=== PATIENT | male | born 1985 | race Caucasian/White ===

== ENCOUNTER 2020-08-15 03:19 | Emergency (ER) | payer BC, SELFPAY ==
[2020-08-15] VITALS (23 sets, daily range): BP systolic 127–171; BP diastolic 83–111; PULSE 73–100; RESP 12–26; TEMP 36.6; O2SAT 96–100
--- NOTE | ~2020-08-15 | XR_ITS ---
EXAMINATION: XR chest 2V 08/15/2020 04:03 INDICATION: Chest tightness PROCEDURE: 2 view chest COMPARISON: No prior studies for comparison. FINDINGS: The lungs are clear. The cardiomediastinal silhouette is within normal limits. There are no pleural effusions. There is no pneumothorax suspected. IMPRESSION: 1: NO ACUTE CARDIOPULMONARY DISEASE. Reviewed, dictated and finalized at location A.
--- NOTE | 2020-08-15 03:21 | ECG_ITS ---
Measurements Intervals [place] Rate: 95 P: 58 ME: 140 QRS: -10 QRSD: 94 T: 12 QT: 325 QTc: 409 Interpretive Statements SINUS RHYTHM NONSPECIFIC ST ELEVATION IN ANTEROLAT/INF LEADS BASELINE ARTIFACT- II, III, AVR, AVF, V1-V6 BORDERLINE ECG Electronically Signed On 08-15-2020 6:04:04 CDT by Adonay Fisher D.O.
--- NOTE | 2020-08-15 03:25 | ED.CHESTPAIN ---
HPI - Chest Pain General Chief Complaint: Chest Pain Stated Complaint: shaking, chest tightness an hour ago Time Seen by Provider: 08/15/20 03:25 History of Present Illness HPI narrative: Awoken from sleep by chest pressure. substernal. Moderate. N radiation. Associated with SOB and full body shakes, not chills. He has never had this before. cough, congestion, fever. Related Data Allergies Allergy/AdvReac Type Severity Reaction Status Date / Time Penicillins AdvReac Other Verified 08/15/20 03:25 Review of Systems Review of Systems: All systems reviewed & are unremarkable except as noted in HPI and below Constitutional: Constitutional: Denies chills and Denies fever(s) Cardiovascular: Cardiovascular: Reports as per HPI Respiratory: Respiratory: Reports as per HPI Gastrointestinal: Gastrointestinal: Reports no additional gastrointestinal complaints [facility] Past Medical History Medical History (Updated 08/16/20 @ 00:00 by Background Daemon) HTN (hypertension) Exam Const: General: healthy appearing, no acute distress and alert Orientation/consciousness: patient oriented x3 HENMT: Head: normal to inspection Neck: Neck: normal visual inspection and no lymphadenopathy Chest: Chest palpation & inspection: no tenderness Resp: Effort & Inspection: normal respiratory effort Auscultation: clear to auscultation bilaterally, no rales, no rhonchi and no wheezes Cardio: Jugular venous distension: no JVD Rate: regular rate Rhythm: regular rhythm Heart sounds: no murmurs GI: Inspection: non-distended GI Palp: Yes Soft to palpation and No Tenderness to palpation present (GI) Skin: General skin exam: normal color Neuro: General: patient oriented x3 and moves all extremities Speech: normal speech Extrem: General: no edema Psych: Appearance: well kempt Affect: Anxious affect present Course Vital Signs Vital signs: Vital Signs Temperature 36.6 C 08/15/20 03:21 Pulse Rate 97 08/15/20 03:21 Respiratory Rate 20 08/15/20 03:21 Blood Pressure 171/111 H 08/15/20 03:21 Pulse Oximetry 99 08/15/20 03:21 Temperature 36.6 C 08/15/20 03:21 Pulse Rate 87 08/15/20 07:03 Respiratory Rate 26 H 08/15/20 07:03 Blood Pressure 143/96 H 08/15/20 07:03 Pulse Oximetry 96 08/15/20 07:03 MDM - Chest Pain MDM Narrative Medical decision making narrative: Pain is atypical. Low risk. Differential Diagnosis Differential diagnosis: Likely atypical chest pain Medical Records Data Attestation: I reviewed the patient's medical records. Lab Data Attestation: I reviewed the patient's lab results. Result diagrams: 08/15/20 03:08/15/20 03:27 Labs: Lab Results 08/15/20 08/15/20 08/15/20 Range/Units 03: 03: 03:27 WBC 5.1 (4.5-10.0) K/mm3 RBC 4.96 (4.6-6.20) M/mm3 Hgb 15.6 (14.0-18.0) g/dL Hct 45.1 (42.0-52.0) % MCV 90.9 (80-100) fl MCH 31.5 (26-34) pg MCHC 34.6 (32-36) g/dl RDW 11.7 (11.5-14.5) % Plt Count 194 (150-375) k/mm3 MPV 10.1 (7.4-10.4) fl Immature Gran % (Auto) 0.6 H (0-0.5) % Neut % (Auto) 41.1 L (45.5-73.1) % Lymph % (Auto) 46.7 H (18.3-44.2) % [place] % (Auto) 9.2 H (2.6-8.5) % Eos % (Auto) 2.0 (0-4.4) % Baso % (Auto) 0.4 (0.2-1.2) % Lymph # (Auto) 2.38 (0.9-3.2) K/mm3 [place] # (Auto) 0.5 (0.1-0.6) K/mm3 Eos # (Auto) 0.1 (0-0.3) K/mm3 Baso # (Auto) 0.0 (0.0-0.1) K/mm3 Abs Immat Gran (auto) 0.03 (0.00-0.031) K/mm3 Absolute Neuts (auto) 2.1 (1.3-6.7) K/mm3 Absolute Nucleated RBC 0.0 (0.0-0.012) K/mm3 Nucleated RBC % 0.0 (0.0-0.2) % PT 13.1 (11.1-14.7) Seconds INR 0.9 APTT 23.8 (22.3-36.8) SECONDS Sodium 142 (137-145) mmol/L Potassium 3.9 (3.4-5.0) mmol/L Chloride 104 (98-107) mmol/L Carbon Dioxide 26 (22-30) mmol/L Anion Gap 12 (8-16) mmol/L BUN 15 (9-20) mg/dL Creatinine 0.70 (0.7-
[2020-08-15 03:36] LABS: Basophils Percent Auto 0.4 % (0.2-1.2); Eosinophils Absolute Auto 0.1 K/mm3 (0-0.3); Hematocrit 45.1 % (42.0-52.0); Hemoglobin 15.6 g/dL (14.0-18.0); Immature Granulocyte Absolute 0.03 K/mm3 (0.00-0.031); Immature Granulocyte Percent A 0.6 % (0-0.5); Lymphocytes Absolute Auto 2.38 K/mm3 (0.9-3.2); Lymphocytes Percent Auto 46.7 % (18.3-44.2); Mean Corpuscular HGB Conc 34.6 g/dl (32-36); Mean Corpuscular Hemoglobin 31.5 pg (26-34); Mean Corpuscular Volume 90.9 fl (80-100); Mean Platelet Volume 10.1 fl (7.4-10.4); Monocytes Absolute Auto 0.5 K/mm3 (0.1-0.6); Monocytes Percent Auto 9.2 % (2.6-8.5); Neutrophils Absolute Auto 2.1 K/mm3 (1.3-6.7); Neutrophils Percent Auto 41.1 % (45.5-73.1); Platelet Count Result 194 k/mm3 (150-375); Red Blood Count 4.96 M/mm3 (4.6-6.20); Red Cell Distribution Width 11.7 % (11.5-14.5); White Blood Count 5.1 K/mm3 (4.5-10.0)
[2020-08-15 03:43] LABS: INR 0.9; Partial Thromboplastin Time 23.8 SECONDS (22.3-36.8); Prothrombin Time 13.1 Seconds (11.1-14.7)
[2020-08-15 03:45] LABS: Anion Gap 12 mmol/L (8-16); Blood Urea Nitrogen 15 mg/dL (9-20); Calcium 10.4 mg/dL (8.4-10.2); Carbon Dioxide 26 mmol/L (22-30); Chloride 104 mmol/L (98-107); Estimated CRCL calculation 126 ml/min; Estimated Glomerular Filt Rate > 60; Glucose 91 mg/dL (75-110); Potassium 3.9 mmol/L (3.4-5.0); Sodium 142 mmol/L (137-145)
[2020-08-15 03:56] LABS: Troponin I < 0.012 ng/mL (0.000-0.034)
[2020-08-15] MEDS: ASPIRIN 81 MG CHEWABLE TABLET 324 MG PO (04:11)
[2020-08-15 06:31] LABS: Troponin I < 0.012 ng/mL (0.000-0.034)
== END 2020-08-15 07:04 | disposition home or self-care (01) ==
PROVIDERS: Emergency Provider Emergency Medicine; PCP Family Medicine Adolescent Medicine
DX: R07.89 Other chest pain (principal); I10 Essential (primary) hypertension; R94.31 Abnormal electrocardiogram [ECG] [EKG]
CPT/HCPCS: 36415; 71046; 80048; 84484; 85025; 85610; 85730; 93005; 99284; A9270

== ENCOUNTER 2021-04-05 00:50 | Inpatient (IN) | payer BC, SELFPAY ==
[2021-04-05] VITALS (22 sets, daily range): BP systolic 122–135; BP diastolic 74–90; PULSE 85–109; RESP 16–20; TEMP 36.4–37.6; O2SAT 93–99; BMI 22.8
--- NOTE | ~2021-04-05 | XR_ITS ---
EXAMINATION: XR chest 2V DATE: 04/07/2021 14:03 INDICATION: Chest pain and shortness of breath TECHNIQUE: PA and lateral views of the chest were obtained. COMPARISON: Chest radiograph dated 08/15/2021 FINDINGS: Opacities at the bilateral lung base with blunting at the posterior sulci and costophrenic angles con sistent with small bilateral pleural effusions with bibasilar atelectasis versus less likely pneumoni a. No pulmonary edema or pneumothorax. The cardiomediastinal silhouette is normal. Visualized bones a nd soft tissues are unremarkable. IMPRESSION: 1. Small bilateral pleural effusions with bibasilar atelectasis versus less likely pneumonia. Reviewed, dictated and finalized at location A. EPT ARTIST IMPRESSION: 1. Small bilateral pleural effusions with bibasilar atelectasis versus less lik presley pneumonia.
--- NOTE | ~2021-04-05 | US_ITS ---
EXAMINATION: US abdomen complete DATE: 04/07/2021 10:49 INDICATION: Abdominal pain TECHNIQUE: Multiple grayscale and Doppler ultrasound images of the abdomen were obtained. COMPARISON: None available FINDINGS: The pancreas is hyperechoic. The liver demonstrates increased echogenicity, heterogenous ec hotexture, and decreased through transmission. No surface nodularity. Normal hepatopetal flow in the main portal vein. The gallbladder is normal with no abnormal wall thickening, pericholecystic fluid o r stones. The normal common bile duct measures 4 mm. There was no sonographic Greene sign. The visual ized portions of the aorta and inferior vena cava are normal. The right kidney measures 10.4 x 6.1 x 5.7 cm. The left kidney measures 10.7 x 6.6 x 6.2 cm. The kidn eys demonstrate normal parenchymal echogenicity. There is no hydronephrosis. The spleen is normal in appearance and measures 12.6 cm. IMPRESSION: 1. Hyperechoic pancreas possibly due to acute pancreatitis. 2. Diffuse hepatic steatosis. Reviewed, dictated and finalized at location A. ING MACHINE OPERATOR
--- NOTE | ~2021-04-05 | CT_ITS ---
EXAMINATION: CT abdomen pelvis wo con DATE: 04/09/2021 12:08 INDICATION: Fever and abdominal pain. Pancreatitis. TECHNIQUE: Computed tomography (CT) of the abdomen and pelvis was performed without intravenous contr ast. The dose-length product was 375.33 mGy-cm. Automated exposure control and iterative reconstructi on technique were employed. COMPARISON: CT dated 04/05/2021. FINDINGS: New small bilateral pleural effusions. Heart size normal. Bibasilar dependent atelectasis. No significant vascular abnormality. There is moderate phlegmonous change surrounding the pancreas wh ich is indistinct. There is fluid extending into the paracolic gutters and pelvis, consistent with ac handy pancreatitis. Fatty infiltration of the liver. The spleen contains calcified granulomas. The adrenal glands and rig ht kidney are unremarkable. There is a punctate nonobstructing left renal stone. The IVC is duplicate d. There is mild lumbar and thoracic spondylosis. IMPRESSION: 1. Persistent acute pancreatitis with moderate surrounding phlegmonous change. 2: New small pleural effusions with underlying compressive atelectasis. Reviewed, dictated and finalized at location A. AND TROLLEY INSPECTING DISPATCHER
--- NOTE | ~2021-04-05 | CT_ITS ---
EXAMINATION: CT abdomen pelvis w con DATE: 04/05/2021 02:12 INDICATION: Right lower quadrant abdominal pain. TECHNIQUE: Computed tomography (CT) of the abdomen and pelvis was performed with 100 mL Omnipaque 350 intravenous contrast. Automated exposure control and iterative reconstruction technique were employe d. The dose-length product was 306.38 mGy-cm. COMPARISON: None. FINDINGS: The visualized portions of the lung bases demonstrate mild atelectasis. No pleural effusion . The heart size is normal. No pericardial effusion. There is diffuse hepatic steatosis. The gallblad nicholas is normal. Calcifications in the spleen are consistent with old granulomatous disease. There is f at stranding and fluid around the pancreas and tracking to the right paracolic gutter, consistent wit h acute interstitial pancreatitis. There is a small volume of pelvic ascites. The adrenal glands and kidneys are normal. There are no dilated loops of bowel. The appendix is normal. There are no patholo gically enlarged lymph nodes. 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 There is mild lumbar and thoracic spondylosis. IMPRESSION: 1. Acute interstitial pancreatitis. 2. Small volume of ascites. 3. Diffuse hepatic steatosis. Reviewed, dictated and finalized at location A. RACTING ENGINEER
--- NOTE | 2021-04-05 01:02 | ED.ABDPAIN ---
HPI - Abdominal Pain General Chief Complaint: Abdominal Pain Stated Complaint: abdominal pain Time Seen by Provider: 04/05/21 00:53 Source: RN notes reviewed History of Present Illness HPI narrative: Patient presents emergency department from home for abdominal pain. Patient states pain began yesterday and is located in the right side of the abdomen with low equalization in the right lower quadrant pain described as sharp and stabbing states he has been taking Tylenol ibuprofen at home with minimal relief he denies any fevers or chills nausea vomiting but does note some loose stools states the pain is worse with movement denies any other symptoms at this time Related Data Allergies Allergy/AdvReac Type Severity Reaction Status Date / Time Penicillins AdvReac Other Verified 04/05/21 01:01 Review of Systems Review of Systems: Gen.: Denies fevers or chills ENT: Denies congestion Respiratory: Denies shortness of breath or cough CV: Denies chest pain or palpitations GI: See HPI Musculoskeletal: Denies back pain or muscle pain Neuro: Denies numbness, tingling, weakness or focal weakness Skin: Denies rash Except as documented, all other systems reviewed and negative [facility] Past Medical History Medical History HTN (hypertension) Social History Social History (Updated 04/05/21 @ 01:03 by John Martinez DO) Smoking status: Never smoker Exam Narrative: APPEARANCE: No acute distress, nontoxic, resting in bed HEENT: Normocephalic, atraumatic, OMM RESPIRATORY: No respiratory distress, clear to auscultation bilaterally with no rhonchi wheezing or rales CARDIOVASCULAR: RRR s murmur ABDOMINAL: Soft nondistended diffusely tender to palpation with increased tenderness in right lower quadrant no guarding MUSCULOSKELETAl: Moves all extremities. No clubbing, cyanosis or edema. NEURO: Awake and alert. Following commands, speech normal, no focal deficits SKIN:: Warm, dry. Normal Color PSYCHIATRIC: Normal affect/mood Course Course Emergency Course: Discussed with patient he states he drinks 4-10 beers a day as well as occasional tequila last drink at [address] Barfield presentation work-up agrees with consult at this time Discussed with Dr. Hill presentation work-up agrees with admission request patient fluids at 200 mL an hour Discussed with patient and family results of workup and diagnosis. Discussed need for admission. Patient and family understand and agree to current treatment plan Vital Signs Vital signs: Vital Signs Temperature 97.5 F L 04/05/21 00:58 Pulse Rate 107 H 04/05/21 00:58 Respiratory Rate 20 04/05/21 00:58 Blood Pressure 135/90 04/05/21 00:58 Pulse Oximetry 99 04/05/21 00:58 Temperature 97.5 F L 04/05/21 00:58 Pulse Rate 92 04/05/21 02:00 Respiratory Rate 16 04/05/21 02:00 Blood Pressure 123/76 04/05/21 05:00 Pulse Oximetry 94 04/05/21 05:00 MDM - Abdominal Pain Lab Data Result diagrams: 04/05/21 01:06 04/05/21 01:06 Labs: Lab Results 04/05/21 04/05/21 04/05/21 Range/Units 01:06 01:06 01:06 WBC 11.9 H (4.5-10.0) K/mm3 RBC 5.05 (4.6-6.20) M/mm3 Hgb 16.7 (14.0-18.0) g/dL Hct 45.9 (42.0-52.0) % MCV 90.9 (80-100) fl MCH 33.1 (26-34) pg MCHC 36.4 H (32-36) g/dl RDW 12.2 (11.5-14.5) % Plt Count 148 L (150-375) k/mm3 MPV 11.2 H (7.4-10.4) fl Immature Gran % (Auto) Not Reportable Neut % (Auto) Not Reportable Lymph % (Auto) Not Reportable [place] % (Auto) Not Reportable Eos % (Auto) Not Reportable Baso % (Auto) Not Reportable Lymph # (Auto) Not Reportable [place] # (Auto) Not Reportable Eos # (Auto) Not Reportable Baso # (Auto) Not Reportable Abs Immat Gran (auto) Not Reportable Absolute Neuts (auto) Not Reportable Absolute Nucleated RBC Not Reportable Tot
[2021-04-05] MEDS: MORPHINE SULFATE (*CRX) 4 MG/ML INJ IV PUSH ×6 (01:09→21:00)
[2021-04-05] MEDS: SODIUM CHLORIDE 0.9% IV 1,000 ML 999 ML IV CONT ×2 (01:09→02:27)
[2021-04-05 01:14] LABS: Hematocrit 45.9 % (42.0-52.0); Hemoglobin 16.7 g/dL (14.0-18.0); Immature Platelet Fraction Pct 12.1 % (0.9-11.2); Mean Corpuscular HGB Conc 36.4 g/dl (32-36); Mean Corpuscular Hemoglobin 33.1 pg (26-34); Mean Corpuscular Volume 90.9 fl (80-100); Mean Platelet Volume 11.2 fl (7.4-10.4); Platelet Count Result 148 k/mm3 (150-375); Red Blood Count 5.05 M/mm3 (4.6-6.20); Red Cell Distribution Width 12.2 % (11.5-14.5); White Blood Count 11.9 K/mm3 (4.5-10.0)
[2021-04-05 01:17] LABS: Add Urine Microscopic? YES; Appearance Urine Clear (Clear); Bacteria Urine Trace /hpf; Bilirubin Urine 1+ (Negative); Blood Urine Negative (Negative); Color Urine Amber (Yellow); Glucose Urine UA Negative (Negative); Ketones Urine Trace mg/dL (Negative); Leukocyte Esterase Ur Negative LEU/UL (Negative); Mucus Urine Heavy /lpf; Nitrate Urine Negative (Negative); Protein Urine 2+ mg/dL (Negative); RBC Urine 0-2 /hpf (0-2); Squamous Epithelial Cell Urine Occasional /hpf (Few); Urobilinogen Urine Negative mg/dL (<2.0); WBC Urine 0-3 /hpf
[2021-04-05 01:22] LABS: Specific Grav Ur 1.042 (1.001-1.035)
[2021-04-05 01:23] LABS: Alanine Aminotransferase 116 U/L (4-50); Albumin Level 3.9 g/dL (3.5-5.1); Alkaline Phosphatase 109 U/L (38-126); Anion Gap 11 mmol/L (8-16); Aspartate Amino Transferase 113 U/L (17-59); Bilirubin,Total 1.7 mg/dL (0.2-1.3); Blood Urea Nitrogen 11 mg/dL (9-20); Calcium 8.2 mg/dL (8.4-10.2); Carbon Dioxide 20 mmol/L (22-30); Chloride 97 mmol/L (98-107); Estimated CRCL calculation 120 ml/min; Estimated Glomerular Filt Rate > 60; Glucose 120 mg/dL (65-110); Lipase 1206 U/L (23-300); Sodium 128 mmol/L (137-145)
[2021-04-05 01:43] LABS: Band Neutrophils Percent 6 % (0-6); Monocytes Absolute Manual 0.23 K/mm3 (0.1-0.90); Monocytes Percent Manual 2 % (3-9); Neutrophils Absolute Manual 9.75 K/mm3 (1.3-6.7); Neutrophils Percent Manual 76 % (46-73); Total Cells Counted 100
[2021-04-05 04:22] LABS: INR 0.9; Prothrombin Time 12.1 Seconds (11.1-14.7)
[2021-04-05 04:23] LABS: Partial Thromboplastin Time 28.6 SECONDS (22.3-36.8)
[2021-04-05] MEDS: SODIUM CHLORIDE 0.9% IV 1,000 ML 150 ML IV CONT (04:23)
[2021-04-05] MEDS: THIAMINE HCL 200 MG/2 ML VIAL 100 MG IV PUSH (04:32)
[2021-04-05 04:39] LABS: Ethanol < 10 mg/dL (<10)
--- NOTE | 2021-04-05 05:41 | ADMGEN ---
This patient, Gianni Lang, was admitted to Medical Room 253-01. Patient/family oriented to hospital policies and general routines including ID bracelet, bed and alarms, visiting hours, pain management, procedures, bathroom and other care routines, personal items, smoking policy, room service/diet, and visiting hours. Information on how to activate the Rapid Response Team has been discussed. Patient/Family are encouraged to report perceived risks to care and to ask questions if they do not understand what they are told or what they should do.
[2021-04-05] MEDS: SODIUM CHLORIDE 0.9% IV 1,000 ML 200 ML IV CONT (09:45)
[2021-04-05] MEDS: amLODIPine BESYLATE 5 MG TABLET 10 MG PO (09:45)
[2021-04-05 09:49] LABS: Hepatitis B Surface Antigen Negative (Negative)
[2021-04-05 09:55] LABS: HAV RESULT Negative (Negative); Hepatitis B Core IgM Result Negative (Negative)
[2021-04-05 10:06] LABS: Hepatitis C Virus Antibody Negative (Negative)
[2021-04-05 10:21] LABS: Cholesterol 304 mg/dL (0-200)
[2021-04-05 10:57] LABS: LDL Cholesterol Direct < 30 mg/dL; Triglycerides > 2625 mg/dL (<150)
[2021-04-05] MEDS: THIAMINE HCL INJ 100 MG, FOLIC ACID INJ 1 MG, MULTIVITAMINS-12 INJ VIAL 1 5 ML, MULTIVI... 125 MG IV CONT (11:22)
--- NOTE | 2021-04-05 12:11 | PM.IMHP ---
H&P: HPI History of Present Illness Date/Time: 04/05/21 12:11 ED-HPI narrative: Patient presents emergency department from home for abdominal pain. Patient states pain began yesterday and is located in the right side of the abdomen with low equalization in the right lower quadrant pain described as sharp and stabbing states he has been taking Tylenol ibuprofen at home with minimal relief he denies any fevers or chills nausea vomiting but does note some loose stools states the pain is worse with movement denies any other symptoms at this time, patient is a 35-year-old male with history of alcohol abuse he states he drinks everyday, most likely he has acute pancreatitis secondary to alcohol abuse, patient states since he drinks almost every day he does not if he goes into withdrawal, will place the patient on CIWA protocol with Librium, but the patient NPO, currently patient is lipase are 1200 will continue to trend, will place the patient on daily banana bag, will continue to monitor and further recommendation to follow, patient is admitted as observation status. Chief Complaint: epigastric pain Review of Systems Review of Systems: All systems reviewed & are unremarkable except as noted in HPI and below PMFSH Past Medical History Medical History HTN (hypertension) Family History Family History (Updated 04/05/21 @ 06:12 by Chiquita Vazquez RN) Grandparent Acute myocardial infarction Chronic obstructive pulmonary disease Hypertension Mother Diabetes mellitus Hypertension Father Hypertension Social History Social History (Updated 04/05/21 @ 01:03 by John Martinez DO) Smoking status: Former smoker Alcohol intake: current Drinks per week: 30 Substance use: current Last use: 04-04-21 1400 Spiritual care concerns: No Meds Home Medications and Allergies Home Medications Medication Instructions Recorded Confirmed Type amlodipine 10 mg PO DAILY 04/05/21 04/05/21 History icosapent ethyl [Vascepa] 2 g PO BID 04/05/21 04/05/21 History Allergies Allergy/AdvReac Type Severity Reaction Status Date / Time Penicillins AdvReac Other Verified 04/05/21 01:01 Vital Signs Vital Signs - 24 hr 04/05/21 00:58 04/05/21 02:00 04/05/21 02:27 Temperature 97.5 F L Pulse Rate 107 H 92 Respiratory Rate 20 16 Blood Pressure 135/90 132/81 Pulse Oximetry 99 96 98 04/05/21 02:30 04/05/21 02:45 04/05/21 03:00 Temperature Pulse Rate Respiratory Rate Blood Pressure 122/77 Pulse Oximetry 97 96 97 04/05/21 03:01 04/05/21 03:15 04/05/21 03:30 Temperature Pulse Rate Respiratory Rate Blood Pressure Pulse Oximetry 96 95 96 04/05/21 03:45 04/05/21 04:00 04/05/21 04:01 Temperature Pulse Rate Respiratory Rate Blood Pressure 124/80 Pulse Oximetry 96 96 95 04/05/21 04:15 04/05/21 04:30 04/05/21 04:45 Temperature Pulse Rate Respiratory Rate Blood Pressure Pulse Oximetry 95 99 96 04/05/21 05:00 04/05/21 05:34 04/05/21 06:23 Temperature 98 F 98.8 F Pulse Rate 85 106 H Respiratory Rate 20 17 Blood Pressure 123/76 123/76 124/74 Pulse Oximetry 94 95 95 Exam Narrative: Patient is comfortable, NAD HEENT: eyes are clear and none icteric LUNGS: normal respiratory effort ABD: not distended Lower extremities: no edema SKIN: nonjaundiced Neuro: grossly intact. H&P: Results Labs Labs: Short CBC 04/05/21 Range/Units 01:06 WBC 11.9 H (4.5-10.0) K/mm3 Hgb 16.7 (14.0-18.0) g/dL Hct 45.9 (42.0-52.0) % Plt Count 148 L (150-375) k/mm3 BMP 04/05/21 01:06 Sodium 128 L Potassium 5.0 Chloride 97 L Carbon Dioxide 20 L BUN 11 Creatinine 0.70 Glucose 120 H Calcium 8.2 L Liver Function 04/05/21 Range/Units 01:06 Total Bilirubin 1.7 H (0.2-1.3) mg/dL AST 113 H (17-59) U/L ALT 116 H (4-50) U/L Alkaline Phosphatas
--- NOTE | 2021-04-05 16:27 | WPDGICN ---
Assessment and Plan Assessment and plan (1) Acute pancreatitis: Code(s): K85.90 - Acute pancreatitis without necrosis or infection, unspecified Status: Acute Assessment and Plan: this is from alcohol abuse continue with supportive care, pain meds, fluids and npo status for now he was advised to discontinue alcohol and consider AA (2) Transaminitis: Code(s): R74.01 - Elevation of levels of liver transaminase levels Status: Acute Assessment and Plan: this is from alcohol abuse and pancreatitis hepatitis panel negative (3) ETOH abuse: Code(s): F10.10 - Alcohol abuse, uncomplicated Status: Acute Assessment and Plan: ciwa protocol banana bag (4) Hyponatremia: Code(s): E87.1 - Hypo-osmolality and hyponatremia Status: Acute Assessment and Plan: monitor (5) Leukocytosis: Code(s): D72.829 - Elevated white blood cell count, unspecified Status: Acute Assessment and Plan: stress response, from pancreatitis monitor GI Consult Note Consult date/time: 04/05/21 16:27 Reason for consult: acute pancreatitis, alcohol abuse HPI: Gianni Lang is a 35 year old male who is alcoholic (4-10 drinks daily since his early 20's) here with new onset of severe pain that started in his back and then radiation to epigastric area, pain began 3 days ago. Finally he came to ER and diagnosed with pancreatitis (CT scan a/p reviewed), labs wbc 12k, na 128, bili 1.7, transaminases 110's, lipase 1200. Started on iv fluids, pain meds, banana bag. Never had scopes. He has HTN on norvasc. Review of Systems Constitutional: Constitutional: Denies chills Eyes: Eyes: Denies blurry vision ENT: Reports Normal hearing present Cardiovascular: Cardiovascular: Denies chest pain Respiratory: Respiratory: Denies dyspnea Gastrointestinal: Gastrointestinal: Reports abdominal pain Genitourinary: Genitourinary: Denies dysuria Musculoskeletal: Musculoskeletal: Reports back pain Integumentary/Breasts: Skin/Breast: Denies dry skin Neurologic: Denies headache(s) Psychiatric: Psychiatric: Denies behavioral changes PMFSH Past Medical History Medical History (Updated 04/05/21 @ 16:31 by Eder Suggs MD) HTN (hypertension) Hyponatremia Leukocytosis Family History Family History (Updated 04/05/21 @ 06:12 by Chiquita Vazquez RN) Grandparent Acute myocardial infarction Chronic obstructive pulmonary disease Hypertension Mother Diabetes mellitus Hypertension Father Hypertension Social History Social History (Updated 04/05/21 @ 01:03 by John Martinez DO) Smoking status: Former smoker Alcohol intake: current Drinks per week: 30 Substance use: current Last use: [id number] Spiritual care concerns: No Meds Home Medications and Allergies Home Medications Medication Instructions Recorded Confirmed Type amlodipine 10 mg PO DAILY 04/05/21 04/05/21 History icosapent ethyl [Vascepa] 2 g PO BID 04/05/21 04/05/21 History Allergies Allergy/AdvReac Type Severity Reaction Status Date / Time Penicillins AdvReac Other Verified 04/05/21 01:01 Vital Signs Vital Signs - 24 hr 04/05/21 00:58 04/05/21 02:00 04/05/21 02:27 Temperature 97.5 F L Pulse Rate 107 H 92 Respiratory Rate 20 16 Blood Pressure 135/90 132/81 Pulse Oximetry 99 96 98 04/05/21 02:30 04/05/21 02:45 04/05/21 03:00 Temperature Pulse Rate Respiratory Rate Blood Pressure 122/77 Pulse Oximetry 97 96 97 04/05/21 03:01 04/05/21 03:15 04/05/21 03:30 Temperature Pulse Rate Respiratory Rate Blood Pressure Pulse Oximetry 96 95 96 04/05/21 03:45 04/05/21 04:00 04/05/21 04:01 Temperature Pulse Rate Respiratory Rate Blood Pressure 124/80 Pulse Oximetry 96 96 95 04/05/21 04:15 04/05/21 04:30 04/05/21 04:45 Temperature Pulse Rate Respiratory Rate Blood Pressure Puls
[2021-04-06] VITALS (9 sets, daily range): BP systolic 117–134; BP diastolic 70–84; PULSE 80–102; RESP 16–18; TEMP 36.7–39.3; O2SAT 91–96
[2021-04-06] MEDS: SODIUM CHLORIDE 0.9% IV 1,000 ML 125 ML IV CONT ×2 (01:46→09:30)
[2021-04-06] MEDS: MORPHINE SULFATE (*CRX) 4 MG/ML INJ IV PUSH ×5 (01:47→21:19)
[2021-04-06 05:54] LABS: Hematocrit 34.8 % (42.0-52.0); Mean Corpuscular HGB Conc 34.5 g/dl (32-36); Mean Corpuscular Hemoglobin 32.8 pg (26-34); Mean Corpuscular Volume 95.1 fl (80-100); Mean Platelet Volume 12.5 fl (7.4-10.4); Platelet Count Result 101 k/mm3 (150-375); Red Blood Count 3.66 M/mm3 (4.6-6.20); Red Cell Distribution Width 12.7 % (11.5-14.5); White Blood Count 4.9 K/mm3 (4.5-10.0)
[2021-04-06 06:00] LABS: Alanine Aminotransferase 47 U/L (4-50); Albumin Level 2.8 g/dL (3.5-5.1); Alkaline Phosphatase 72 U/L (38-126); Anion Gap 12 mmol/L (8-16); Aspartate Amino Transferase 54 U/L (17-59); Bilirubin,Total 0.9 mg/dL (0.2-1.3); Blood Urea Nitrogen 9 mg/dL (9-20); Calcium 7.9 mg/dL (8.4-10.2); Carbon Dioxide 20 mmol/L (22-30); Chloride 101 mmol/L (98-107); Estimated CRCL calculation 124 ml/min; Estimated Glomerular Filt Rate > 60; Glucose 86 mg/dL (65-110); Lipase 356 U/L (23-300); Magnesium 2.2 mg/dL (1.6-2.3); Potassium 3.7 mmol/L (3.4-5.0); Sodium 133 mmol/L (137-145)
[2021-04-06] MEDS: amLODIPine BESYLATE 5 MG TABLET 10 MG PO (08:13)
--- NOTE | 2021-04-06 12:15 | WPDGIPROGNO ---
Progress Note: A&P Assessment and Plan (1) Acute pancreatitis: Code(s): K85.90 - Acute pancreatitis without necrosis or infection, unspecified Status: Acute Assessment and Plan: etoh induced normalization of liver enzymes and pain is improving liquid diet and then advance as tolerated (2) ETOH abuse: Code(s): F10.10 - Alcohol abuse, uncomplicated Status: Acute Assessment and Plan: will need to stop thiamine (3) Transaminitis: Code(s): R74.01 - Elevation of levels of liver transaminase levels Status: Acute Assessment and Plan: improved today (4) Hyponatremia: Code(s): E87.1 - Hypo-osmolality and hyponatremia Status: Acute Subjective Date/time seen: 04/06/21 12:15 Interval history: still with pain but has improved, no nausea Review of Systems Review of Systems: All systems reviewed & are unremarkable except as noted in HPI and below Exam Const: General: comfortable and no acute distress HENMT: General nose exam: Normal nares present Eyes: Sclera: sclerae normal Neck: Neck: supple Resp: Auscultation: clear to auscultation bilaterally Cardio: Rate: regular rate GI: GI Palp: Yes Soft to palpation, Yes Tenderness to palpation present (GI) (mild ttp in epigastric) and No Guarding due to palpation present (GI) Auscultation: normal bowel sounds Skin: General skin exam: normal color Neuro: General: gait normal Speech: normal speech Motor exam (neuro): Normal motor muscle tone present throughout Extrem: General: normal to inspection Psych: Mental Status: mental status grossly normal Objective Data Vital Signs Vital Signs: Vital Signs - 24 hr 04/05/21 14:46 04/05/21 19:18 04/05/21 21:23 Temperature 99.0 F 99.6 F Pulse Rate 109 H 108 H Respiratory Rate 18 18 Blood Pressure 128/79 127/74 Pulse Oximetry 96 93 93 04/05/21 23:57 04/06/21 03:54 Temperature 97.8 F 98.6 F Pulse Rate 102 H Respiratory Rate 16 Blood Pressure 117/70 Pulse Oximetry 91 Intake/Output Intake/Output: Intake & Output 04/03/21 04/04/21 04/05/21 04/06/21 23:59 23:59 23:59 23:59 Intake Total 3013.2 3050 Output Total 850 600 Balance 2163.2 2450 Meds/Results Medications: Active Medications Generic Name Dose Route Start Last Admin Trade Name Freq PRN Reason Stop Dose Admin Amlodipine Besylate 10 mg 04/05/21 09:00 04/06/21 08:13 Amlodipine Besylate 5 Mg Tablet PO 10 mg DAILY AUGIE Administration Chlordiazepoxide HCl 25 mg 04/05/21 10:41 Chlordiazepoxide (*Crx) 25 Mg Capsule PO Q6H PRN Withdrawal Fish Oil 2 gm 04/05/21 09:00 04/06/21 08:16 [place] 3 Polyunsat Fatty Acids 1 Gm Cap PO Not Given BID AUGIE Sodium Chloride 1,000 mls @ 125 mls/hr 04/05/21 05:15 04/06/21 09:30 Normal Saline Iv IV CONT 125 mls/hr .Q8H AUGIE Administration Thiamine HCl 100 mg/ Folic 1,013.2 mls @ 125 mls/hr 04/05/21 12:00 04/05/21 19:45 Acid 1 mg/ Multivitamins 5 ml/ IV CONT Infused Multivitamins 5 ml/ Magnesium Q24H AUGIE Infusion Sulfate 1 gm/ Sodium Chloride Morphine Sulfate 4 mg 04/05/21 05:09 04/06/21 08:03 Morphine Sulfate (*Crx) 4 Mg/Ml Inj IV PUSH 4 mg Q2H PRN Administration Pain Rated 7-10 Ondansetron HCl 4 mg 04/05/21 05:09 Ondansetron Inj 4 Mg/2 Ml Vial IV PUSH Q4H PRN Nausea Radiology Results: ITS Impressions Abdomen/Pelvis CT 04/05/21 07:32 IMPRESSION: 1. Acute interstitial pancreatitis. 2. Small volume of ascites. 3. Diffuse hepatic steatosis. Labs Labs: Laboratory Results - last 24 hr 04/06/21 04/06/21 05:29 05:29 WBC 4.9 RBC 3.66 L Hgb 12.0 L D Hct 34.8 L MCV 95.1 MCH 32.8 MCHC 34.5 RDW 12.7 Plt Count 101 L MPV 12.5 H % Immature Plt Fraction 11.0 Sodium 133 L Potassium 3.7 Chloride 101 Carbon Dioxide 20 L Anion Gap 12 BUN 9 Creatinine 0.70 Estim Creat Clear Calc 124 Es
[2021-04-06] MEDS: THIAMINE HCL INJ 100 MG, FOLIC ACID INJ 1 MG, MULTIVITAMINS-12 INJ VIAL 1 5 ML, MULTIVI... 125 MG IV CONT (13:15)
[2021-04-06] MEDS: OMEGA 3 POLYUNSAT FATTY ACIDS 1 GM CAP 2 GM PO (16:26)
[2021-04-07] VITALS (13 sets, daily range): BP systolic 127–130; BP diastolic 70–78; PULSE 80–113; RESP 16–24; TEMP 36.4–38.4; O2SAT 92–97
[2021-04-07] MEDS: MORPHINE SULFATE (*CRX) 4 MG/ML INJ IV PUSH ×6 (02:46→21:48)
[2021-04-07 05:48] LABS: Hematocrit 32.7 % (42.0-52.0); Hemoglobin 11.4 g/dL (14.0-18.0); Mean Corpuscular HGB Conc 34.9 g/dl (32-36); Mean Corpuscular Hemoglobin 32.1 pg (26-34); Mean Corpuscular Volume 92.1 fl (80-100); Mean Platelet Volume 12.1 fl (7.4-10.4); Platelet Count Result 112 k/mm3 (150-375); Red Blood Count 3.55 M/mm3 (4.6-6.20); Red Cell Distribution Width 12.7 % (11.5-14.5); White Blood Count 5.2 K/mm3 (4.5-10.0)
[2021-04-07 06:19] LABS: Alanine Aminotransferase 50 U/L (4-50); Albumin Level 2.7 g/dL (3.5-5.1); Alkaline Phosphatase 96 U/L (38-126); Anion Gap 3 mmol/L (8-16); Aspartate Amino Transferase 72 U/L (17-59); Bilirubin,Total 0.9 mg/dL (0.2-1.3); Blood Urea Nitrogen 5 mg/dL (9-20); Calcium 8.7 mg/dL (8.4-10.2); Carbon Dioxide 27 mmol/L (22-30); Chloride 101 mmol/L (98-107); Estimated CRCL calculation 143 ml/min; Estimated Glomerular Filt Rate > 60; Glucose 96 mg/dL (65-110); Lipase 351 U/L (23-300); Magnesium 2.2 mg/dL (1.6-2.3); Potassium 3.6 mmol/L (3.4-5.0); Sodium 131 mmol/L (137-145)
[2021-04-07] MEDS: amLODIPine BESYLATE 5 MG TABLET 10 MG PO (09:12)
[2021-04-07] MEDS: THIAMINE HCL INJ 100 MG, FOLIC ACID INJ 1 MG, MULTIVITAMINS-12 INJ VIAL 1 5 ML, MULTIVI... 125 MG IV CONT (11:34)
--- NOTE | 2021-04-07 13:16 | WPDGIPROGNO ---
Progress Note: A&P Assessment and Plan (1) Acute pancreatitis: Code(s): K85.90 - Acute pancreatitis without necrosis or infection, unspecified Status: Acute Assessment and Plan: etoh induced doing better, he can go home today by GI standpoint low fat diet and eat small portions until pain is better he will need to stop using alcohol and this was discussed with patient abdominal us reviewed c/w pancreatitis and fatty liver (most likely from eoth use) (2) ETOH abuse: Code(s): F10.10 - Alcohol abuse, uncomplicated Status: Acute Assessment and Plan: will need to stop thiamine (3) Transaminitis: Code(s): R74.01 - Elevation of levels of liver transaminase levels Status: Acute Assessment and Plan: improving Subjective Date/time seen: 04/07/21 13:16 Interval history: tolerating diet, less abdominal pain- still some in back. No nausea. Review of Systems Review of Systems: All systems reviewed & are unremarkable except as noted in HPI and below Exam Const: General: comfortable and no acute distress HENMT: General nose exam: Normal nares present Eyes: General: appearance normal, both eyes and all related structures Neck: Neck: no JVD Resp: Auscultation: clear to auscultation bilaterally Cardio: Rate: regular rate Rhythm: regular rhythm GI: Inspection: non-distended GI Palp: Yes Soft to palpation and Yes Tenderness to palpation present (GI) (minimal ttp in epigastric, no rebound) Auscultation: normal bowel sounds Skin: General skin exam: normal color Neuro: General: gait normal Speech: normal speech Motor exam (neuro): Normal motor muscle tone present throughout Extrem: General: normal to inspection Psych: Mental Status: mental status grossly normal Objective Data Vital Signs Vital Signs: Vital Signs - 24 hr 04/06/21 14:00 04/06/21 16:00 04/06/21 20:00 Temperature 98.1 F Pulse Rate 99 99 Pulse Rate [Apical Auscultation] 80 80 Respiratory Rate 16 16 Blood Pressure 134/84 134/84 Pulse Oximetry 96 96 04/06/21 20:54 04/06/21 21:18 04/06/21 22:36 Temperature 102.8 F H 102.8 F H 99.7 F H Pulse Rate 102 H Pulse Rate [Apical Auscultation] Respiratory Rate 18 Blood Pressure 130/70 Pulse Oximetry 95 04/07/21 00:00 04/07/21 02:41 04/07/21 03:21 Temperature 99.8 F H Pulse Rate Pulse Rate [Apical Auscultation] 80 Respiratory Rate Blood Pressure 130/70 Pulse Oximetry 97 04/07/21 03:40 04/07/21 05:58 04/07/21 09:10 Temperature 100.8 F H 101.2 F H Pulse Rate 99 99 Pulse Rate [Apical Auscultation] 80 Respiratory Rate 16 24 H Blood Pressure 130/70 127/76 128/78 Pulse Oximetry 94 93 04/07/21 09:13 04/07/21 09:40 04/07/21 11:33 Temperature 101.2 F H 98.1 F Pulse Rate Pulse Rate [Apical Auscultation] Respiratory Rate Blood Pressure Pulse Oximetry 93 Intake/Output Intake/Output: Intake & Output 04/04/21 04/05/21 04/06/21 04/07/21 23:59 23:59 23:59 23:59 Intake Total 3013.2 4830 735.2 Output Total 850 2150 1600 Balance 2163.2 2680 -864.8 Meds/Results Medications: Active Medications Generic Name Dose Route Start Last Admin Trade Name Freq PRN Reason Stop Dose Admin Amlodipine Besylate 10 mg 04/05/21 09:00 04/07/21 09:12 Amlodipine Besylate 5 Mg Tablet PO 10 mg DAILY AUGIE Administration Chlordiazepoxide HCl 25 mg 04/05/21 10:41 Chlordiazepoxide (*Crx) 25 Mg Capsule PO Q6H PRN Withdrawal Fish Oil 2 gm 04/05/21 09:00 04/07/21 09:12 [place] 3 Polyunsat Fatty Acids 1 Gm Cap PO Not Given BID AUGIE Thiamine HCl 100 mg/ Folic 1,013.2 mls @ 125 mls/hr 04/05/21 12:00 04/07/21 11:34 Acid 1 mg/ Multivitamins 5 ml/ IV CONT 125 mls/hr Multivitamins 5 ml/ Magnesium Q24H AUGIE Administration Sulfate 1 gm/ Sodium Chloride Acetaminophen 1,000 mg in 100 mls @ 400 mls/hr 04/06/21 20:49 04/07/21 09:13 Ofirmev 1,000 Mg Ivpb IV
--- NOTE | 2021-04-07 13:29 | PM.IMPN ---
Progress Note: A&P Assessment and Plan (1) Acute pancreatitis: Code(s): K85.90 - Acute pancreatitis without necrosis or infection, unspecified Status: Acute Assessment and Plan: ED-HPI narrative: Patient presents emergency department from home for abdominal pain. Patient states pain began yesterday and is located in the right side of the abdomen with low equalization in the right lower quadrant pain described as sharp and stabbing states he has been taking Tylenol ibuprofen at home with minimal relief he denies any fevers or chills nausea vomiting but does note some loose stools states the pain is worse with movement denies any other symptoms at this time, patient is a 35-year-old male with history of alcohol abuse he states he drinks everyday, most likely he has acute pancreatitis secondary to alcohol abuse, patient states since he drinks almost every day he does not if he goes into withdrawal, will place the patient on CIWA protocol with Librium, but the patient NPO, currently patient is lipase are 1200 will continue to trend, will place the patient on daily banana bag, will continue to monitor and further recommendation to follow. 04/06/2021 interval history: Patient remains clinically stable his lipase are trending down however patient continued to complain lower abdominal pain, is able to tolerate full liquid, he has no nausea or vomiting, to further evaluate will order abdominal ultrasound however patient ate so the ultrasound cannot be done until tomorrow morning, will continue present management, will continue to monitor. (2) ETOH abuse: Code(s): F10.10 - Alcohol abuse, uncomplicated Status: Acute Assessment and Plan: will monitor patient with a CIWA protocol and Librium (3) Transaminitis: Code(s): R74.01 - Elevation of levels of liver transaminase levels Status: Acute Assessment and Plan: most likely secondary to alcohol abuse, acute hepatitis panel is negative will monitor and trend. Additional Plan will monitor patient with CIWA protocol, with Librium, if started the patient on banana bag with thiamine and folic acid, Subjective Date/time seen: 04/06/2021 ED-HPI narrative: Patient presents emergency department from home for abdominal pain. Patient states pain began yesterday and is located in the right side of the abdomen with low equalization in the right lower quadrant pain described as sharp and stabbing states he has been taking Tylenol ibuprofen at home with minimal relief he denies any fevers or chills nausea vomiting but does note some loose stools states the pain is worse with movement denies any other symptoms at this time, patient is a 35-year-old male with history of alcohol abuse he states he drinks everyday, most likely he has acute pancreatitis secondary to alcohol abuse, patient states since he drinks almost every day he does not if he goes into withdrawal, will place the patient on CIWA protocol with Librium, but the patient NPO, currently patient is lipase are 1200 will continue to trend, will place the patient on daily banana bag, will continue to monitor and further recommendation to follow. 04/06/2021 interval history: Patient remains clinically stable his lipase are trending down however patient continued to complain lower abdominal pain, is able to tolerate full liquid, he has no nausea or vomiting, to further evaluate will order abdominal ultrasound however patient ate so the ultrasound cannot be done until tomorrow morning, will continue present management, will continue to monitor. Review of Systems Review of Systems: All systems reviewed & are unremarkable except as noted in HPI and below Exam Narrative: Patient is comfortable, NAD HEENT: eyes are clear and none icteric LUNGS: normal respiratory effort ABD: not distended Lower extremities: no edema SKIN: nonjaundiced Neuro: grossly intact. Objective Data Vital Signs Vital Signs: Vital Si
--- NOTE | 2021-04-07 13:47 | PM.IMPN ---
Progress Note: A&P Assessment and Plan (1) Acute pancreatitis: Code(s): K85.90 - Acute pancreatitis without necrosis or infection, unspecified Status: Acute Assessment and Plan: ED-[facility] narrative: Patient presents emergency department from home for abdominal pain. Patient states pain began yesterday and is located in the right side of the abdomen with low equalization in the right lower quadrant pain described as sharp and stabbing states he has been taking Tylenol ibuprofen at home with minimal relief he denies any fevers or chills nausea vomiting but does note some loose stools states the pain is worse with movement denies any other symptoms at this time, patient is a 35-year-old male with history of alcohol abuse he states he drinks everyday, most likely he has acute pancreatitis secondary to alcohol abuse, patient states since he drinks almost every day he does not if he goes into withdrawal, will place the patient on CIWA protocol with Librium, but the patient NPO, currently patient is lipase are 1200 will continue to trend, will place the patient on daily banana bag, will continue to monitor and further recommendation to follow. 04/06/2021 interval history: Patient remains clinically stable his lipase are trending down however patient continued to complain lower abdominal pain, is able to tolerate full liquid, he has no nausea or vomiting, to further evaluate will order abdominal ultrasound however patient ate so the ultrasound cannot be done until tomorrow morning, will continue present management, will continue to monitor. 04/07/2021 interval history: patient's lipase trended down and stable, seen by GI and has signed off, patient developed fever last night 102.8 also patient had fever of 101.2, patient continue to have abdominal pain but the intensity has better, abdominal ultrasound did not show any significant pathology, good with fever will start the patient on Cipro and Flagyl, will do the blood culture, wound culture and chest x-ray will continue to monitor and further recommendation to follow. (2) ETOH abuse: Code(s): F10.10 - Alcohol abuse, uncomplicated Status: Acute Assessment and Plan: will monitor patient with a CIWA protocol and Librium (3) Transaminitis: Code(s): R74.01 - Elevation of levels of liver transaminase levels Status: Acute Assessment and Plan: most likely secondary to alcohol abuse, acute hepatitis panel is negative will monitor and trend. Additional Plan will monitor patient with CIWA protocol, with Librium, if started the patient on banana bag with thiamine and folic acid, Subjective Date/time seen: 04/07/21 13:47 ED-HPI narrative: Patient presents emergency department from home for abdominal pain. Patient states pain began yesterday and is located in the right side of the abdomen with low equalization in the right lower quadrant pain described as sharp and stabbing states he has been taking Tylenol ibuprofen at home with minimal relief he denies any fevers or chills nausea vomiting but does note some loose stools states the pain is worse with movement denies any other symptoms at this time, patient is a 35-year-old male with history of alcohol abuse he states he drinks everyday, most likely he has acute pancreatitis secondary to alcohol abuse, patient states since he drinks almost every day he does not if he goes into withdrawal, will place the patient on CIWA protocol with Librium, but the patient NPO, currently patient is lipase are 1200 will continue to trend, will place the patient on daily banana bag, will continue to monitor and further recommendation to follow. 04/06/2021 interval history: Patient remains clinically stable his lipase are trending down however patient continued to complain lower abdominal pain, is able to tolerate full liquid, he has no nausea or vomiting, to further evaluate will order abdominal ultrasound however patient ate so the ultr
[2021-04-07 14:08] LABS: EDCOVIDSCREEN Negative (Negative)
[2021-04-07] MEDS: metroNIDAZOLE 500 MG/ISO 100ML 500 MG/100 ML BAG 100 MG IVPB ×2 (14:56→22:51)
[2021-04-07] MEDS: CIPROFLOXACIN 400 MG/D5W 200ML 200 ML 200 MG IVPB (22:50)
[2021-04-08] VITALS (17 sets, daily range): BP systolic 117–130; BP diastolic 68–83; PULSE 92–110; RESP 16–20; TEMP 36.6–39.4; O2SAT 92–97
[2021-04-08] MEDS: MORPHINE SULFATE (*CRX) 4 MG/ML INJ IV PUSH ×6 (01:40→21:47)
[2021-04-08] MEDS: metroNIDAZOLE 500 MG/ISO 100ML 500 MG/100 ML BAG 100 MG IVPB ×3 (05:46→21:39)
[2021-04-08 05:53] LABS: Alanine Aminotransferase 48 U/L (4-50); Alkaline Phosphatase 85 U/L (38-126); Anion Gap 6 mmol/L (8-16); Aspartate Amino Transferase 56 U/L (17-59); Bilirubin,Total 0.8 mg/dL (0.2-1.3); Blood Urea Nitrogen 5 mg/dL (9-20); Calcium 9.2 mg/dL (8.4-10.2); Carbon Dioxide 29 mmol/L (22-30); Chloride 100 mmol/L (98-107); Estimated CRCL calculation 143 ml/min; Estimated Glomerular Filt Rate > 60; Glucose 113 mg/dL (65-110); Lipase 354 U/L (23-300); Magnesium 2.3 mg/dL (1.6-2.3); Potassium 3.5 mmol/L (3.4-5.0); Sodium 135 mmol/L (137-145)
[2021-04-08 06:02] LABS: Hematocrit 32.6 % (42.0-52.0); Hemoglobin 11.1 g/dL (14.0-18.0); Immature Platelet Fraction Pct 9.1 % (0.9-11.2); Mean Corpuscular Hemoglobin 32.2 pg (26-34); Mean Corpuscular Volume 94.5 fl (80-100); Mean Platelet Volume 11.5 fl (7.4-10.4); Platelet Count Result 142 k/mm3 (150-375); Red Blood Count 3.45 M/mm3 (4.6-6.20); Red Cell Distribution Width 12.9 % (11.5-14.5); White Blood Count 7.9 K/mm3 (4.5-10.0)
[2021-04-08] MEDS: CIPROFLOXACIN 400 MG/D5W 200ML 200 ML 200 MG IVPB ×2 (10:15→20:28)
[2021-04-08] MEDS: amLODIPine BESYLATE 5 MG TABLET 10 MG PO (10:18)
[2021-04-08] MEDS: THIAMINE HCL 100 MG TABLET PO (13:02)
[2021-04-08] MEDS: FOLIC ACID 1 MG TABLET PO (13:02)
[2021-04-08] MEDS: ACETAMINOPHEN 325 MG TABLET 650 MG PO ×2 (13:42→21:42)
--- NOTE | 2021-04-08 13:49 | PM.IMPN ---
Progress Note: A&P Assessment and Plan (1) Acute pancreatitis: Code(s): K85.90 - Acute pancreatitis without necrosis or infection, unspecified Status: Acute Assessment and Plan: ED-[facility] narrative: Patient presents emergency department from home for abdominal pain. Patient states pain began yesterday and is located in the right side of the abdomen with low equalization in the right lower quadrant pain described as sharp and stabbing states he has been taking Tylenol ibuprofen at home with minimal relief he denies any fevers or chills nausea vomiting but does note some loose stools states the pain is worse with movement denies any other symptoms at this time, patient is a 35-year-old male with history of alcohol abuse he states he drinks everyday, most likely he has acute pancreatitis secondary to alcohol abuse, patient states since he drinks almost every day he does not if he goes into withdrawal, will place the patient on CIWA protocol with Librium, but the patient NPO, currently patient is lipase are 1200 will continue to trend, will place the patient on daily banana bag, will continue to monitor and further recommendation to follow. 04/06/2021 interval history: Patient remains clinically stable his lipase are trending down however patient continued to complain lower abdominal pain, is able to tolerate full liquid, he has no nausea or vomiting, to further evaluate will order abdominal ultrasound however patient ate so the ultrasound cannot be done until tomorrow morning, will continue present management, will continue to monitor. 04/07/2021 interval history: patient's lipase trended down and stable, seen by GI and has signed off, patient developed fever last night 102.8 also patient had fever of 101.2, patient continue to have abdominal pain but the intensity has better, abdominal ultrasound did not show any significant pathology, good with fever will start the patient on Cipro and Flagyl, will do the blood culture, wound culture and chest x-ray will continue to monitor and further recommendation to follow. 04/08/2021 interval history: patient's lipase trended down and stable, seen by GI and has signed off, patient developed fever on 04/06 102.8 also patient had fever again of 101.2 and today 10, patient continue to have abdominal pain but the intensity has better, abdominal ultrasound did not show any significant pathology, with fever will start the patient on Cipro and Flagyl, urine and chest x-ray are clear, the blood and urine culture, no growth so far, with high fever patient is clinically stable does not appear to be seen he is able to tolerate his diet and no nausea or vomiting there is no obvious rash, will continue present management will follow-up on urine and blood culture further recommendation to follow. (2) ETOH abuse: Code(s): F10.10 - Alcohol abuse, uncomplicated Status: Acute Assessment and Plan: will monitor patient with a CIWA protocol and Librium (3) Transaminitis: Code(s): R74.01 - Elevation of levels of liver transaminase levels Status: Acute Assessment and Plan: most likely secondary to alcohol abuse, acute hepatitis panel is negative will monitor and trend. Additional Plan will monitor patient with CIWA protocol, with Librium, if started the patient on banana bag with thiamine and folic acid, Subjective Date/time seen: 04/08/21 13:49 ED-HPI narrative: Patient presents emergency department from home for abdominal pain. Patient states pain began yesterday and is located in the right side of the abdomen with low equalization in the right lower quadrant pain described as sharp and stabbing states he has been taking Tylenol ibuprofen at home with minimal relief he denies any fevers or chills nausea vomiting but does note some loose stools states the pain is worse with movement denies any other symptoms at this time, patient is a 35-year-old male with history of alcohol
[2021-04-08] MEDS: OMEGA 3 POLYUNSAT FATTY ACIDS 1 GM CAP 2 GM PO (16:45)
[2021-04-09] VITALS (12 sets, daily range): BP systolic 112–125; BP diastolic 71–73; PULSE 87–121; RESP 16–18; TEMP 37.2–38.6; O2SAT 91–96
[2021-04-09] MEDS: MORPHINE SULFATE (*CRX) 4 MG/ML INJ IV PUSH ×5 (03:57→20:05)
[2021-04-09] MEDS: metroNIDAZOLE 500 MG/ISO 100ML 500 MG/100 ML BAG 100 MG IVPB ×3 (05:43→21:22)
[2021-04-09] MEDS: ACETAMINOPHEN 325 MG TABLET 650 MG PO (05:44)
[2021-04-09 05:56] LABS: Hematocrit 32.8 % (42.0-52.0); Mean Corpuscular HGB Conc 33.5 g/dl (32-36); Mean Corpuscular Hemoglobin 31.1 pg (26-34); Mean Corpuscular Volume 92.7 fl (80-100); Mean Platelet Volume 11.6 fl (7.4-10.4); Platelet Count Result 175 k/mm3 (150-375); Red Blood Count 3.54 M/mm3 (4.6-6.20); Red Cell Distribution Width 12.9 % (11.5-14.5); White Blood Count 10.5 K/mm3 (4.5-10.0)
[2021-04-09 06:27] LABS: Alanine Aminotransferase 37 U/L (4-50); Albumin Level 3.1 g/dL (3.5-5.1); Alkaline Phosphatase 88 U/L (38-126); Anion Gap 3 mmol/L (8-16); Aspartate Amino Transferase 39 U/L (17-59); Bilirubin,Total 0.8 mg/dL (0.2-1.3); Blood Urea Nitrogen 8 mg/dL (9-20); Calcium 9.9 mg/dL (8.4-10.2); Carbon Dioxide 31 mmol/L (22-30); Chloride 99 mmol/L (98-107); Estimated CRCL calculation 143 ml/min; Estimated Glomerular Filt Rate > 60; Glucose 112 mg/dL (65-110); Lipase 425 U/L (23-300); Magnesium 2.3 mg/dL (1.6-2.3); Potassium 3.3 mmol/L (3.4-5.0); Sodium 133 mmol/L (137-145)
[2021-04-09] MEDS: amLODIPine BESYLATE 5 MG TABLET 10 MG PO (08:42)
[2021-04-09] MEDS: FOLIC ACID 1 MG TABLET PO (08:42)
[2021-04-09] MEDS: THIAMINE HCL 100 MG TABLET PO (08:42)
[2021-04-09] MEDS: CIPROFLOXACIN 400 MG/D5W 200ML 200 ML 200 MG IVPB ×2 (08:43→20:07)
--- NOTE | 2021-04-09 14:09 | PC.NURSE ---
waiting for pharmacy to send 1400 flagyl. will give when I receive it
--- NOTE | 2021-04-09 16:21 | PM.IMPN ---
Progress Note: A&P Assessment and Plan (1) Acute pancreatitis: Code(s): K85.90 - Acute pancreatitis without necrosis or infection, unspecified Status: Acute Assessment and Plan: ED-[facility] narrative: Patient presents emergency department from home for abdominal pain. Patient states pain began yesterday and is located in the right side of the abdomen with low equalization in the right lower quadrant pain described as sharp and stabbing states he has been taking Tylenol ibuprofen at home with minimal relief he denies any fevers or chills nausea vomiting but does note some loose stools states the pain is worse with movement denies any other symptoms at this time, patient is a 35-year-old male with history of alcohol abuse he states he drinks everyday, most likely he has acute pancreatitis secondary to alcohol abuse, patient states since he drinks almost every day he does not if he goes into withdrawal, will place the patient on CIWA protocol with Librium, but the patient NPO, currently patient is lipase are 1200 will continue to trend, will place the patient on daily banana bag, will continue to monitor and further recommendation to follow. 04/06/2021 interval history: Patient remains clinically stable his lipase are trending down however patient continued to complain lower abdominal pain, is able to tolerate full liquid, he has no nausea or vomiting, to further evaluate will order abdominal ultrasound however patient ate so the ultrasound cannot be done until tomorrow morning, will continue present management, will continue to monitor. 04/07/2021 interval history: patient's lipase trended down and stable, seen by GI and has signed off, patient developed fever last night 102.8 also patient had fever of 101.2, patient continue to have abdominal pain but the intensity has better, abdominal ultrasound did not show any significant pathology, good with fever will start the patient on Cipro and Flagyl, will do the blood culture, wound culture and chest x-ray will continue to monitor and further recommendation to follow. 04/08/2021 interval history: patient's lipase trended down and stable, seen by GI and has signed off, patient developed fever on 04/06 102.8 also patient had fever again of 101.2 and today 10, patient continue to have abdominal pain but the intensity has better, abdominal ultrasound did not show any significant pathology, with fever will start the patient on Cipro and Flagyl, urine and chest x-ray are clear, the blood and urine culture, no growth so far, with high fever patient is clinically stable does not appear to be seen he is able to tolerate his diet and no nausea or vomiting there is no obvious rash, will continue present management will follow-up on urine and blood culture further recommendation to follow. 04/09/2021 interval history: patient's lipase trended down and stable, seen by GI and has signed off, patient developed fever on 04/06 102.8 also patient had fever again of 101.2 and today 10, patient continue to have abdominal pain but the intensity has better, abdominal ultrasound did not show any significant pathology, with fever on 04/06 started the patient on Cipro and Flagyl, urine and chest x-ray are clear, the blood and urine culture, no growth so far, with high fever patient is clinically stable does not appear to be seen he is able to tolerate his diet and no nausea or vomiting there is no obvious rash, today patient had a CT scan of the abdomen and it showed Persistent acute pancreatitis with moderate surrounding phlegmonous change, will place the patient on NPO, will again ask GI to see the patient, will continue present management will follow-up on urine and blood culture further recommendation to follow. (2) ETOH abuse: Code(s): F10.10 - Alcohol abuse, uncomplicated Status: Acute Assessment and Plan: will monitor patient with a CIWA protocol and Librium (3) Transaminitis: Co
[2021-04-09] MEDS: SODIUM CHLORIDE 0.9% IV 1,000 ML 150 ML IV CONT (17:26)
[2021-04-10] VITALS (11 sets, daily range): BP systolic 114–122; BP diastolic 64–72; PULSE 78–117; RESP 16–18; TEMP 36.7–37.4; O2SAT 90–98
[2021-04-10] MEDS: MORPHINE SULFATE (*CRX) 4 MG/ML INJ IV PUSH ×7 (01:10→20:06)
[2021-04-10] MEDS: SODIUM CHLORIDE 0.9% IV 1,000 ML 150 ML IV CONT ×2 (01:13→09:17)
[2021-04-10] MEDS: metroNIDAZOLE 500 MG/ISO 100ML 500 MG/100 ML BAG 100 MG IVPB ×3 (05:30→21:10)
[2021-04-10 05:53] LABS: Hematocrit 37.9 % (42.0-52.0); Hemoglobin 12.6 g/dL (14.0-18.0); Mean Corpuscular HGB Conc 33.2 g/dl (32-36); Mean Corpuscular Hemoglobin 31.8 pg (26-34); Mean Corpuscular Volume 95.7 fl (80-100); Mean Platelet Volume 10.9 fl (7.4-10.4); Platelet Count Result 215 k/mm3 (150-375); Red Blood Count 3.96 M/mm3 (4.6-6.20); Red Cell Distribution Width 13.1 % (11.5-14.5); White Blood Count 12.9 K/mm3 (4.5-10.0)
[2021-04-10 06:12] LABS: Alanine Aminotransferase 30 U/L (4-50); Albumin Level 3.4 g/dL (3.5-5.1); Alkaline Phosphatase 94 U/L (38-126); Anion Gap 7 mmol/L (8-16); Aspartate Amino Transferase 35 U/L (17-59); Bilirubin,Total 0.9 mg/dL (0.2-1.3); Blood Urea Nitrogen 9 mg/dL (9-20); Calcium 10.1 mg/dL (8.4-10.2); Carbon Dioxide 28 mmol/L (22-30); Chloride 101 mmol/L (98-107); Estimated CRCL calculation 124 ml/min; Estimated Glomerular Filt Rate > 60; Glucose 101 mg/dL (65-110); Lipase 555 U/L (23-300); Magnesium 2.3 mg/dL (1.6-2.3); Potassium 3.2 mmol/L (3.4-5.0); Sodium 136 mmol/L (137-145)
[2021-04-10] MEDS: CIPROFLOXACIN 400 MG/D5W 200ML 200 ML 200 MG IVPB ×2 (09:17→20:01)
[2021-04-10] MEDS: THIAMINE HCL 100 MG TABLET PO (09:17)
[2021-04-10] MEDS: amLODIPine BESYLATE 5 MG TABLET 10 MG PO (09:17)
[2021-04-10] MEDS: FOLIC ACID 1 MG TABLET PO (09:17)
--- NOTE | 2021-04-10 09:36 | PC.NURSE ---
patient given 0900 cipro before potassium. will administer potassium when antibiotic is finished so that patient is not behind on antibitoic
[2021-04-10] MEDS: POTASSIUM CHLORIDE INJ 40 MEQ in SODIUM CHLORIDE 0.9% IV 500 ML 130 MEQ IVPB (11:08)
--- NOTE | 2021-04-10 11:15 | PM.IMPN ---
Progress Note: A&P Assessment and Plan (1) Acute pancreatitis: Code(s): K85.90 - Acute pancreatitis without necrosis or infection, unspecified Status: Acute Assessment and Plan: ED-[facility] narrative: Patient presents emergency department from home for abdominal pain. Patient states pain began yesterday and is located in the right side of the abdomen with low equalization in the right lower quadrant pain described as sharp and stabbing states he has been taking Tylenol ibuprofen at home with minimal relief he denies any fevers or chills nausea vomiting but does note some loose stools states the pain is worse with movement denies any other symptoms at this time, patient is a 35-year-old male with history of alcohol abuse he states he drinks everyday, most likely he has acute pancreatitis secondary to alcohol abuse, patient states since he drinks almost every day he does not if he goes into withdrawal, will place the patient on CIWA protocol with Librium, but the patient NPO, currently patient is lipase are 1200 will continue to trend, will place the patient on daily banana bag, will continue to monitor and further recommendation to follow. 04/06/2021 interval history: Patient remains clinically stable his lipase are trending down however patient continued to complain lower abdominal pain, is able to tolerate full liquid, he has no nausea or vomiting, to further evaluate will order abdominal ultrasound however patient ate so the ultrasound cannot be done until tomorrow morning, will continue present management, will continue to monitor. 04/07/2021 interval history: patient's lipase trended down and stable, seen by GI and has signed off, patient developed fever last night 102.8 also patient had fever of 101.2, patient continue to have abdominal pain but the intensity has better, abdominal ultrasound did not show any significant pathology, good with fever will start the patient on Cipro and Flagyl, will do the blood culture, wound culture and chest x-ray will continue to monitor and further recommendation to follow. 04/08/2021 interval history: patient's lipase trended down and stable, seen by GI and has signed off, patient developed fever on 04/06 102.8 also patient had fever again of 101.2 and today 10, patient continue to have abdominal pain but the intensity has better, abdominal ultrasound did not show any significant pathology, with fever will start the patient on Cipro and Flagyl, urine and chest x-ray are clear, the blood and urine culture, no growth so far, with high fever patient is clinically stable does not appear to be seen he is able to tolerate his diet and no nausea or vomiting there is no obvious rash, will continue present management will follow-up on urine and blood culture further recommendation to follow. 04/09/2021 interval history: patient's lipase trended down and stable, seen by GI and has signed off, patient developed fever on 04/06 102.8 also patient had fever again of 101.2 and today 10, patient continue to have abdominal pain but the intensity has better, abdominal ultrasound did not show any significant pathology, with fever on 04/06 started the patient on Cipro and Flagyl, urine and chest x-ray are clear, the blood and urine culture, no growth so far, with high fever patient is clinically stable does not appear to be seen he is able to tolerate his diet and no nausea or vomiting there is no obvious rash, today patient had a CT scan of the abdomen and it showed Persistent acute pancreatitis with moderate surrounding phlegmonous change, will place the patient on NPO, will again ask GI to see the patient, will continue present management will follow-up on urine and blood culture further recommendation to follow. 04/10/2021 interval history: patient's lipase trended down and stable, seen by GI and has signed off, patient developed fever on 04/06 102.8 also patient had fever again of 101.2 and on 04/09 101.5, Today patient
[2021-04-11] VITALS: PULSE 93
[2021-04-11] MEDS: MORPHINE SULFATE (*CRX) 4 MG/ML INJ IV PUSH ×3 (00:23→07:28)
[2021-04-11] MEDS: SODIUM CHLORIDE 0.9% IV 1,000 ML 150 ML IV CONT ×2 (01:13→09:48)
[2021-04-11 03:15] VITALS: BP 120/74; PULSE 99; RESP 16; TEMP 37.3; O2SAT 94
[2021-04-11 04:00] VITALS: PULSE 94
[2021-04-11] MEDS: metroNIDAZOLE 500 MG/ISO 100ML 500 MG/100 ML BAG 100 MG IVPB (05:10)
[2021-04-11 05:49] LABS: Hematocrit 29.6 % (42.0-52.0); Hemoglobin 9.9 g/dL (14.0-18.0); Mean Corpuscular HGB Conc 33.4 g/dl (32-36); Mean Corpuscular Hemoglobin 32.7 pg (26-34); Mean Corpuscular Volume 97.7 fl (80-100); Mean Platelet Volume 10.1 fl (7.4-10.4); Platelet Count Result 215 k/mm3 (150-375); Red Blood Count 3.03 M/mm3 (4.6-6.20); Red Cell Distribution Width 12.9 % (11.5-14.5); White Blood Count 16.5 K/mm3 (4.5-10.0)
[2021-04-11 06:01] LABS: Alanine Aminotransferase 21 U/L (4-50); Albumin Level 2.7 g/dL (3.5-5.1); Alkaline Phosphatase 72 U/L (38-126); Anion Gap 3 mmol/L (8-16); Aspartate Amino Transferase 34 U/L (17-59); Bilirubin,Total 0.8 mg/dL (0.2-1.3); Blood Urea Nitrogen 8 mg/dL (9-20); Calcium 9.5 mg/dL (8.4-10.2); Carbon Dioxide 26 mmol/L (22-30); Chloride 103 mmol/L (98-107); Estimated CRCL calculation 124 ml/min; Estimated Glomerular Filt Rate > 60; Glucose 96 mg/dL (65-110); Lipase 475 U/L (23-300); Potassium 3.7 mmol/L (3.4-5.0); Sodium 132 mmol/L (137-145)
[2021-04-11 08:00] VITALS: PULSE 115
[2021-04-11] MEDS: FOLIC ACID 1 MG TABLET PO (08:21)
[2021-04-11] MEDS: THIAMINE HCL 100 MG TABLET PO (08:21)
[2021-04-11] MEDS: amLODIPine BESYLATE 5 MG TABLET 10 MG PO (08:21)
[2021-04-11] MEDS: CIPROFLOXACIN 400 MG/D5W 200ML 200 ML 200 MG IVPB (08:22)
[2021-04-11] MEDS: POTASSIUM CHLORIDE 20 MEQ TABLET 40 MEQ PO (09:48)
[2021-04-11] MEDS: HYDROcodone/acetaminophen (*CRX) 5-325 MG TABLET 1 TAB PO (11:19)
[2021-04-11 12:00] VITALS: PULSE 101
--- NOTE | 2021-04-11 12:01 | WPDGIPROGNO ---
Progress Note: A&P Assessment and Plan (1) Acute pancreatitis: Code(s): K85.90 - Acute pancreatitis without necrosis or infection, unspecified Status: Acute Assessment and Plan: clinically much better, pain almost gone he can go home with low fat diet and follow-up office in 6 weeks (we can repeat labs- cbc and cmp) he says that won't be drinking anymore (2) Transaminitis: Code(s): R74.01 - Elevation of levels of liver transaminase levels Status: Acute (3) Leukocytosis: Code(s): D72.829 - Elevated white blood cell count, unspecified Status: Acute Assessment and Plan: could be from stress response/pancreatitis afebrile last 2 days, he was started empirically on abx- cultures no growth CT scan from few days ago reviewed= Persistent acute pancreatitis with moderate surrounding phlegmonous change (4) Fever: Code(s): R50.9 - Fever, unspecified Status: Acute Assessment and Plan: resolved, probably from pancreatitis and CT changes will see in office in ~ 6 weeks (5) ETOH abuse: Code(s): F10.10 - Alcohol abuse, uncomplicated Status: Acute Subjective Date/time seen: 04/11/21 12:01 Interval history: afebrile for last 2 days, pain is almost gone and tolerating diet. Cultures no growth Review of Systems Review of Systems: All systems reviewed & are unremarkable except as noted in HPI and below Exam Const: General: comfortable and no acute distress HENMT: General nose exam: Normal nares present Eyes: General: appearance normal, both eyes and all related structures Neck: Neck: no JVD Resp: Auscultation: clear to auscultation bilaterally Cardio: Rate: regular rate Rhythm: regular rhythm GI: Inspection: non-distended GI Palp: Yes Soft to palpation, No Tenderness to palpation present (GI) and No Guarding due to palpation present (GI) Auscultation: normal bowel sounds Skin: General skin exam: normal color Neuro: General: gait normal Speech: normal speech Extrem: General: normal to inspection Psych: Mental Status: mental status grossly normal Objective Data Vital Signs Vital Signs: Vital Signs - 24 hr 04/10/21 14:35 04/10/21 16:00 04/10/21 19:21 Temperature 98.1 F 99.4 F Pulse Rate 96 103 H 95 Respiratory Rate 18 17 Blood Pressure 115/70 114/71 Pulse Oximetry 98 91 04/10/21 20:00 04/11/21 00:00 04/11/21 03:15 Temperature 99.1 F Pulse Rate 92 93 99 Respiratory Rate 16 Blood Pressure 120/74 Pulse Oximetry 94 04/11/21 04:00 04/11/21 08:00 Temperature Pulse Rate 94 115 H Respiratory Rate Blood Pressure Pulse Oximetry Intake/Output Intake/Output: Intake & Output 04/08/21 04/09/21 04/10/21 04/11/21 23:59 23:59 23:59 23:59 Intake Total 2220 2230 3790 3160 Output Total 1999 1950 2170 900 Balance 679 447 4406 2260 Meds/Results Medications: Active Medications Generic Name Dose Route Start Last Admin Trade Name Freq PRN Reason Stop Dose Admin Acetaminophen 650 mg 04/07/21 21:28 04/09/21 05:44 Acetaminophen 325 Mg Tablet PO 650 mg Q4H PRN Administration Fever Hydrocodone Bitart/Acetaminophen 1 tab 04/11/21 11:03 04/11/21 11:19 Hydrocodone/Acetaminophen (*Crx) 5-325 Mg Tablet PO 1 tab Q6H PRN Administration Pain Rated 4-6 Amlodipine Besylate 10 mg 04/05/21 09:00 04/11/21 08:21 Amlodipine Besylate 5 Mg Tablet PO 10 mg DAILY AUGIE Administration Chlordiazepoxide HCl 25 mg 04/05/21 10:41 Chlordiazepoxide (*Crx) 25 Mg Capsule PO Q6H PRN Withdrawal Fish Oil 2 gm 04/05/21 09:00 04/11/21 08:24 [place] 3 Polyunsat Fatty Acids 1 Gm Cap PO Not Given BID AUGIE Folic Acid 1 mg 04/08/21 12:00 04/11/21 08:21 Folic Acid 1 Mg Tablet PO 1 mg DAILY AUGIE Administration Metronidazole 500 mg in 100 mls @ 100 mls/hr 04/07/21 14:00 04/11/21 06:10 Flagyl 500 Mg/Iso Soln 100 Ml IVPB Infused Q8HR AUGIE Infusion Cip
--- NOTE | 2021-04-11 12:23 | PM.DS ---
DS: Admitting Diagnosis Discharge Date 04/11/2021 Admitting Diagnosis epigastric pain DS: Discharge Diagnosis Discharge Diagnosis (1) Acute pancreatitis: Code(s): K85.90 - Acute pancreatitis without necrosis or infection, unspecified Status: Inactive Assessment and Plan: ED-[facility] narrative: Patient presents emergency department from home for abdominal pain. Patient states pain began yesterday and is located in the right side of the abdomen with low equalization in the right lower quadrant pain described as sharp and stabbing states he has been taking Tylenol ibuprofen at home with minimal relief he denies any fevers or chills nausea vomiting but does note some loose stools states the pain is worse with movement denies any other symptoms at this time, patient is a 35-year-old male with history of alcohol abuse he states he drinks everyday, most likely he has acute pancreatitis secondary to alcohol abuse, patient states since he drinks almost every day he does not if he goes into withdrawal, will place the patient on CIWA protocol with Librium, but the patient NPO, currently patient is lipase are 1200 will continue to trend, will place the patient on daily banana bag, will continue to monitor and further recommendation to follow. 04/06/2021 interval history: Patient remains clinically stable his lipase are trending down however patient continued to complain lower abdominal pain, is able to tolerate full liquid, he has no nausea or vomiting, to further evaluate will order abdominal ultrasound however patient ate so the ultrasound cannot be done until tomorrow morning, will continue present management, will continue to monitor. 04/07/2021 interval history: patient's lipase trended down and stable, seen by GI and has signed off, patient developed fever last night 102.8 also patient had fever of 101.2, patient continue to have abdominal pain but the intensity has better, abdominal ultrasound did not show any significant pathology, good with fever will start the patient on Cipro and Flagyl, will do the blood culture, wound culture and chest x-ray will continue to monitor and further recommendation to follow. 04/08/2021 interval history: patient's lipase trended down and stable, seen by GI and has signed off, patient developed fever on 04/06 102.8 also patient had fever again of 101.2 and today 10, patient continue to have abdominal pain but the intensity has better, abdominal ultrasound did not show any significant pathology, with fever will start the patient on Cipro and Flagyl, urine and chest x-ray are clear, the blood and urine culture, no growth so far, with high fever patient is clinically stable does not appear to be seen he is able to tolerate his diet and no nausea or vomiting there is no obvious rash, will continue present management will follow-up on urine and blood culture further recommendation to follow. 04/09/2021 interval history: patient's lipase trended down and stable, seen by GI and has signed off, patient developed fever on 04/06 102.8 also patient had fever again of 101.2 and today 10, patient continue to have abdominal pain but the intensity has better, abdominal ultrasound did not show any significant pathology, with fever on 04/06 started the patient on Cipro and Flagyl, urine and chest x-ray are clear, the blood and urine culture, no growth so far, with high fever patient is clinically stable does not appear to be seen he is able to tolerate his diet and no nausea or vomiting there is no obvious rash, today patient had a CT scan of the abdomen and it showed Persistent acute pancreatitis with moderate surrounding phlegmonous change, will place the patient on NPO, will again ask GI to see the patient, will continue present management will follow-up on urine and blood culture further recommendation to follow. 04/10/2021 interval history: patient's lipase trended down and stable, seen by GI and has signed off, patient de
== END 2021-04-11 14:02 | disposition home or self-care (01) | DRG 439 ==
LOC: ANHED 05:19 → ANH2MED 05:24
PROVIDERS: Admitting Provider Internal Medicine; Emergency Provider Emergency Medicine; PCP Family Medicine Adolescent Medicine; Visit Provider Family Medicine
DX: K85.20 Alcohol induced acute pancreatitis without necrosis or infection (principal); E87.1 Hypo-osmolality and hyponatremia; F10.10 Alcohol abuse, uncomplicated; D72.829 Elevated white blood cell count, unspecified; Z20.822 Contact with and (suspected) exposure to COVID-19; I10 Essential (primary) hypertension
CPT/HCPCS: 36415; 71046; 74176; 74177; 76700; 80053; 80061; 80074; 80307; 81001; 83690; 83735; 85025; 85027; 85055; 85610; 85730; 87040; 87086; 87426; 96361; 96365; 96366; 96375; 96376; 99285; A9270; C9803; G0378; J0131; J0744; J2270; J3411; J3475; J3480; J7030; J7040; Q9967

== ENCOUNTER → 2021-11-08 15:12 | Outpatient (CLI) | payer BC, SELFPAY ==
--- NOTE | ~2021-11-08 | US_ITS ---
EXAMINATION: US abdomen complete DATE: 11/08/2021 15:39 INDICATION: R74.8 - Abnormal levels of other serum enzymes TECHNIQUE: Multiple grayscale and Doppler ultrasound images of the abdomen were obtained. COMPARISON: 04/07/2021, CT abdomen pelvis 04/09/2021. FINDINGS: The visualized portions of the pancreas are normal, the head and tail of the pancreas are p oorly visualized. The liver is mildly enlarged with increased echogenicity, poor penetration, and nor mal echotexture. No surface nodularity. Normal hepatopetal flow in the main portal vein. The gallblad nicholas is normal with no abnormal wall thickening, pericholecystic fluid or stones. The common bile duct measures 4 mm. There was no sonographic Greene sign. The visualized portions of the aorta and inferi or vena cava are normal. The right kidney measures 9.5 x 4.7 x 6.0. The left kidney measures 10.2 x 5.5 x 5.3. The kidneys dem onstrate normal parenchymal echogenicity. There is no hydronephrosis. The spleen is normal in appeara nce and measures 9.5 cm. IMPRESSION: Hepatomegaly. Echogenic liver, most commonly due to steatosis but also can be seen with hepatitis and fibrosis. Reviewed, dictated and finalized at location K. IMPRESSION: Hepatomegaly. Echogenic liver, most commonly due to steatosis but also can be s een with hepatitis and fibrosis.
== END ==
PROVIDERS: PCP Physician Assistant; Visit Provider Physician Assistant
DX: R74.8 Abnormal levels of other serum enzymes (principal); R16.0 Hepatomegaly, not elsewhere classified
CPT/HCPCS: 76700

== ENCOUNTER 2021-11-08 20:47 | Inpatient (IN) | payer BC, SELFPAY ==
[2021-11-08] VITALS (11 sets, daily range): BP systolic 116–139; BP diastolic 77–95; PULSE 82–101; RESP 14–23; TEMP 36.4; O2SAT 96–99
--- NOTE | ~2021-11-08 | CT_ITS ---
EXAMINATION: CT abdomen pelvis w con DATE: 11/08/2021 22:59 INDICATION: upper abdominal pain, pancreatitis TECHNIQUE: Computed tomography (CT) of the abdomen and pelvis was performed with 100 mL Omnipaque-350 intravenous contrast. Automated exposure control and iterative reconstruction technique were employe d. The dose-length product was 263.70 mGy-cm. COMPARISON: 04/09/2021. FINDINGS: Lower thorax: Mild left basilar atelectasis. Liver: Enlarged. Fatty infiltrated. No mass. Biliary/Gallbladder: Gallbladder is normal. No bile duct dilation. Pancreas: Peripancreatic inflammatory stranding and fluid, primarily about the tail of the pancreas. Bilobed, 2.4 mildly rim-enhancing fluid collection at the pancreatic head. Spleen: Normal. Adrenals:No mass. Kidneys: Punctate nonobstructive left upper pole calculus. No suspicious mass or hydronephrosis. GI tract: Several loops of mildly dilated small bowel in the left upper quadrant likely reactive to t he adjacent pancreatic inflammatory change. Normal appendix. Mesentery/Peritoneum: No ascites, mass, or free air. 2.0 x 2.8 x 4.3 cm rim-enhancing fluid collectio n in the right paracolic gutter, not in direct communication with the pancreatic changes. Retroperitoneum: No mass. Duplicated IVC. Pelvis: Bladder wall thickening and mild inflammatory change in a partially distended bladder. Left h ydrocele. Soft Tissues: Soft tissues and body wall unremarkable. Bones: No acute osseous finding. IMPRESSION: Acute interstitial pancreatitis of the pancreatic tail with adjacent localized small bowel ileus. 2.4 cm pancreatic head and 4.3 cm right paracolic gutter rim enhancing fluid collections, likely represe nt pseudocysts from prior episode of pancreatitis. Hepatomegaly and steatosis. Possible cystitis. Reviewed, dictated and finalized at location K. IMPRESSION: Acute interstitial pancreatitis of the pancreatic tail with adjacent localized small bowel ileus. 2.4 cm pancreatic head and 4.3 cm right paracolic gutter rim enhancing fluid collections, likely represent pseudocysts from prior episode o f pancreatitis. Hepatomegaly and steatosis. Possible cystitis.
--- NOTE | ~2021-11-08 | CT_ITS ---
EXAMINATION: CT abdomen pelvis wo con DATE: 11/11/2021 10:44 INDICATION: Pancreatitis. TECHNIQUE: Computed tomography (CT) of the abdomen and pelvis was performed without intravenous contr ast. Automated exposure control and iterative reconstruction technique were employed. The dose-length product was 320.00 mGy-cm. COMPARISON: CT abdomen and pelvis 11/08/2021, 04/05/2021 FINDINGS: The visualized portions of the lung bases demonstrate small pleural effusions, left worse t koch right. There is atelectasis bilaterally with a dependent predominance. The heart size is normal. No pericardial effusion. There is diffuse hepatic steatosis. The gallbladder, spleen, adrenal glands, and kidneys are normal. There is no urolithiasis. There is fat stranding and fluid around the pancre as and tracking inferiorly in the retroperitoneum bilaterally. There is a small volume of pelvic asci sheri. In the right paracolic gutter, there is a 2.7 x 1.8 cm fluid collection, likely a pseudocyst fro m the previous episode of pancreatitis. There are no dilated loops of bowel. The appendix is not visu alized. 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 There are no pathologically enlarged lymph nodes. There is mild lumbar spondylosis. IMPRESSION: 1. Acute pancreatitis with interval worsening of inflammation and worsened small volume of pelvic asc ites. 2. New small pleural effusions. 3. Diffuse hepatic steatosis. Reviewed, dictated and finalized at location A. IMPRESSION: 1. Acute pancreatitis with interval worsening of inflammation and worsened smal l volume of pelvic ascites. 2. New small pleural effusions. 3. Diffuse hepatic steatosis.
--- NOTE | 2021-11-08 21:58 | ECG_ITS ---
Measurements Intervals [place] Rate: 84 P: 66 OR: 139 QRS: 14 QRSD: 96 T: 45 QT: 346 QTc: 409 Interpretive Statements SINUS RHYTHM BASELINE ARTIFACT- I, II, III, AVR, AVL, AVF NORMAL ECG COMPARED TO ECG 08/15/2020 03:23:32 NO SIGNIFICANT CHANGES Electronically Signed On 11-09-2021 7:46:29 CDT by Adonay Fisher D.O.
[2021-11-08] MEDS: SODIUM CHLORIDE 0.9% IV 1,000 ML 999 ML IV CONT (22:24)
--- NOTE | 2021-11-08 22:25 | ED.ABDPAIN ---
HPI - Abdominal Pain General Chief Complaint: Abdominal Pain Stated Complaint: abd pain Time Seen by Provider: 11/08/21 21:54 Source: patient and RN notes reviewed Mode of arrival: ambulatory Limitations: no limitations History of Present Illness HPI narrative: This is a 36 year old male with history of alcohol abuse, dyslipidemia and pancreatitis who presents for evaluation of epigastric and left flank pain for 1 week. He is currently being evaluated by his PCP for his pain. He had labs performed and an abdominal ultrasound today. He had labs drawn last week but he did not receive results until yesterday. He was told he had elevated LFTs and he was positive for lyme disease. He was started on doxycycline yesterday. His pain has been constant but it worsens after drinking water today. He had nausea and vomiting yesterday. He denies fever or chills. He reports dark urine but no dysuria. He rates his pain as 4/10 , and it feels like previous episode of pancreatitis. He states last week he took ibuprofen and Tylenol once a day for his pain. He states his cause of pancreatitis in the past was due to high lipids. He does admit to drinking 5-6 days ago and his last drink was Sunday. Related Data Allergies Allergy/AdvReac Type Severity Reaction Status Date / Time Penicillins AdvReac Unknown Other Verified 11/09/21 03:31 Review of Systems Review of Systems: All systems reviewed & are unremarkable except as noted in HPI and below Constitutional: Constitutional: Denies chills, Denies fatigue and Denies fever(s) Cardiovascular: Cardiovascular: Denies chest pain Respiratory: Respiratory: Denies chest congestion and Denies cough Gastrointestinal: Gastrointestinal: Reports abdominal pain, Denies diarrhea, Reports nausea and Reports vomiting Genitourinary: Genitourinary: Denies hematuria, Denies oliguria and Denies dysuria Musculoskeletal: Musculoskeletal: Reports back pain [facility] Past Medical History Medical History (Updated 11/09/21 @ 04:54 by Tessa Kee MD) Acute pancreatitis ETOH abuse HTN (hypertension) Family History Family History (Updated 11/09/21 @ 03:35 by Mamta Huitron RN) Grandparent Acute myocardial infarction Chronic obstructive pulmonary disease Hypertension History of blood clots Mother Diabetes mellitus Hypertension Father Hypertension Social History Social History Smoking packs per day: 1 Smoking cigarettes per day: 20.0 Years smoked: 10 Smoking pack-years: 10.00 Smoking status: Former smoker Tobacco type: cigarettes Second hand tobacco smoke exposure: No Alcohol intake: current Drinks per week: 35 Substance use: never Substance use type: does not use Last use: [id number] Gender identity (if verbalized by the patient): Male Sexual Orientation (if Verbalized by the Patient): Straight or Heterosexual Spiritual care concerns: No Agree to blood products: Yes Exam Const: General: no acute distress and alert Nutritional Appearance: well nourished Orientation/consciousness: patient oriented x3 HENMT: Face and sinus: normal facial exam Eyes: EOM: EOMs intact bilaterally Chest: Chest palpation & inspection: normal inspection of the chest Resp: Effort & Inspection: normal respiratory effort Auscultation: clear to auscultation bilaterally Cardio: Rate: regular rate Rhythm: regular rhythm Heart sounds: no murmurs GI: GI Palp: Yes Soft to palpation, Yes Tenderness to palpation present (GI) (epigastric, LUQ), No Guarding due to palpation present (GI) and No Rigid due to palpation Auscultation: normal bowel sounds Back/Spine/Pelvis: Back: no CVA tenderness Skin: General skin exam: normal color Rashes: no rashes Wounds: no wounds Neuro: General: patient oriented x3, moves all extremities and CN's II-XI intact bilaterally Cranial nerves: Yes Nystagmus not present Speech
[2021-11-08] MEDS: ONDANSETRON INJ 4 MG/2 ML VIAL IV PUSH (22:27)
[2021-11-08 22:30] LABS: Basophils Percent Auto 0.3 % (0.2-1.2); Eosinophils Percent Auto 0.1 % (0-4.4); Hematocrit 42.3 % (42.0-52.0); Hemoglobin 16.5 g/dL (14.0-18.0); Immature Granulocyte Absolute 0.03 K/mm3 (0.00-0.031); Immature Granulocyte Percent A 0.4 % (0-0.5); Lymphocytes Absolute Auto 1.42 K/mm3 (0.9-3.2); Lymphocytes Percent Auto 20.4 % (18.3-44.2); Mean Corpuscular Hemoglobin 35.9 pg (26-34); Mean Corpuscular Volume 92.2 fl (80-100); Mean Platelet Volume 11.8 fl (7.4-10.4); Monocytes Absolute Auto 0.4 K/mm3 (0.1-0.6); Neutrophils Absolute Auto 5.1 K/mm3 (1.3-6.7); Neutrophils Percent Auto 73.8 % (45.5-73.1); Platelet Count Result 143 k/mm3 (150-375); Red Blood Count 4.59 M/mm3 (4.6-6.20)
[2021-11-08] MEDS: MORPHINE SULFATE (*CRX) 4 MG/ML INJ IV PUSH (22:30)
[2021-11-08 22:41] LABS: Ethanol < 10 mg/dL (<10)
[2021-11-08 22:42] LABS: Alanine Aminotransferase 238 U/L (6-50); Albumin Level 3.4 g/dL (3.5-5.1); Alkaline Phosphatase 114 U/L (38-126); Anion Gap 18 mmol/L (8-16); Aspartate Amino Transferase 258 U/L (17-59); Blood Urea Nitrogen 13 mg/dL (9-20); Calcium 8.6 mg/dL (8.4-10.2); Carbon Dioxide 17 mmol/L (22-30); Chloride 97 mmol/L (98-107); Estimated CRCL calculation 103 ml/min; Estimated Glomerular Filt Rate > 60; Glucose 115 mg/dL (65-110); Lipase 584 U/L (23-300); Potassium 3.8 mmol/L (3.4-5.0); Prothrombin Time 12.8 Seconds (11.1-14.7); Sodium 132 mmol/L (137-145)
[2021-11-08 22:43] LABS: Partial Thromboplastin Time 28.7 SECONDS (22.3-36.8)
[2021-11-08 22:48] LABS: Add Urine Microscopic? YES; Appearance Urine Clear (Clear); Bilirubin Urine 1+ (Negative); Blood Urine Negative (Negative); Color Urine Brown (Yellow); Glucose Urine UA Negative (Negative); Ketones Urine 1+ mg/dL (Negative); Leukocyte Esterase Ur Negative LEU/UL (Negative); Nitrate Urine Negative (Negative); Protein Urine Negative (Negative); Specific Grav Ur 1.025 (1.001-1.035); pH Urine 5.5 (5.0-9.0)
[2021-11-08 22:55] LABS: Mucus Urine Moderate /lpf; RBC Urine 0-2 /hpf (0-2); WBC Urine 0-3 /hpf
[2021-11-08 23:22] LABS: Lactic Acid Reflex 0.8 mmol/L (0.7-2.0)
[2021-11-08 23:31] LABS: SARS-CoV-2 RNA PCR Negative
[2021-11-09] VITALS (14 sets, daily range): BP systolic 110–139; BP diastolic 66–88; PULSE 70–95; RESP 12–26; TEMP 36.8–37.9; O2SAT 93–98; BMI 22.4
[2021-11-09 00:07] LABS: Cholesterol 492 mg/dL (0-200); LDL Cholesterol Direct < 60 mg/dL
[2021-11-09] MEDS: HYDROmorphone HCL INJ (*CRX) 1 MG/ML SYR IV PUSH (00:21)
[2021-11-09 01:04] LABS: Triglycerides > 2625 mg/dL (<150)
[2021-11-09] MEDS: SODIUM CHLORIDE 0.9% IV 1,000 ML 999 ML IV CONT (01:29)
[2021-11-09] MEDS: DOXYCYCLINE 100 MG/NS 100 ML 100 MG/100 ML BAG IVPB ×2 (02:05→18:02)
[2021-11-09 03:14] LABS: Glucose Point of Care 108 mg/dl (65-105)
[2021-11-09] MEDS: INSULIN HUMAN REGULAR (*BKC) 100 UNITS in SODIUM CHLORIDE 0.9% IV 99 ML 6.4 UNITS IV CONT (03:24)
[2021-11-09] MEDS: DEXTROSE 5%/LACTATED RINGERS 1,000 ML 100 ML IV CONT (03:25)
--- NOTE | 2021-11-09 03:31 | PC.NURSE ---
This patient, Gianni Lang, was admitted to Intensive Care Unit-10. Patient/family oriented to hospital policies and general routines including ID bracelet, bed and alarms, visiting hours, pain management, procedures, bathroom and other care routines, personal items, smoking policy, room service/diet, and visiting hours. Information on how to activate the Rapid Response Team has been discussed. Patient/Family are encouraged to report perceived risks to care and to ask questions if they do not understand what they are told or what they should do.
[2021-11-09] MEDS: LACTATED RINGERS 1,000 ML 999 ML IV CONT (04:25)
[2021-11-09] MEDS: HYDROmorphone HCL INJ (*CRX) 1 MG/ML SYR 0.5 MG IV PUSH ×6 (04:26→23:13)
[2021-11-09 04:33] LABS: Glucose Point of Care 78 mg/dl (65-105)
[2021-11-09 05:41] LABS: Glucose Point of Care 56 mg/dl (65-105)
[2021-11-09 06:39] LABS: Glucose Point of Care 108 mg/dl (65-105)
[2021-11-09 07:23] LABS: Glucose Point of Care 99 mg/dl (65-105)
[2021-11-09 08:27] LABS: Glucose Point of Care 58 mg/dl (65-105)
[2021-11-09] MEDS: DEXTROSE 50% 25 GM/50 ML SYRINGE IV PUSH (08:36)
--- NOTE | 2021-11-09 08:47 | WPDINTPN ---
Progress Note: A&P Assessment and Plan (1) Hypertriglyceridemia: Code(s): E78.1 - Pure hyperglyceridemia Status: Acute Assessment and Plan: Patient currently on insulin infusion and D5 LR. Blood sugar has dropped and I have stopped insulin infusion temporally Patient will be given D50 and I will increase D5 LR rate. Decrease insulin rate to 5 units/hour and resume in 1 hour Adjust accordingly Patient has chronic hypertriglyceridemia Once levels are in reasonable range and abdominal pain improves, patient will be resumed on Vescapa. May have to add fibrate (2) Acute pancreatitis: Code(s): K85.90 - Acute pancreatitis without necrosis or infection, unspecified Status: Acute Assessment and Plan: Acute recurrent pancreatitis secondary to hypertriglyceridemia and alcohol abuse CT scan of abdomen and pelvis showed Acute interstitial pancreatitis of the pancreatic tail with adjacent localized small bowel ileus. 2.4 cm pancreatic head and 4.3 cm right paracolic gutter rim enhancing fluid collections, likely represent pseudocysts from prior episode of pancreatitis. Hepatomegaly and steatosis. Possible cystitis. Ultrasound showed Hepatomegaly. Echogenic liver, most commonly due to steatosis but also can be seen with hepatitis and fibrosis. Continue insulin infusion and IV fluids for hypertriglyceridemia IV fluids NPO Pain control Consult GI (3) Essential (primary) hypertension: Code(s): I10 - Essential (primary) hypertension Status: Acute Assessment and Plan: Blood pressure in controlled range. Hold amlodipine. Currently NPO Treat as needed (4) Lyme disease: Code(s): A69.20 - Lyme disease, unspecified Status: Acute Assessment and Plan: Continue doxycycline but switched to IV (5) Alcohol abuse: Code(s): F10.10 - Alcohol abuse, uncomplicated Status: Acute Assessment and Plan: Patient was counseled and encouraged to quit alcohol and explained that unless patient completely abstains from alcohol his hypertriglyceridemia will not be controlled and he will continue to have recurrent episodes of pancreatitis. Patient does not appear to be motivated in quitting this time. Add folic acid and thiamine Plan DVT prophylaxis -SCDs while in bed. Patient is ambulating Nutrition -NPO Code Status - Full Code Subjective Date/time seen: 11/09/21 36-year-old male with past medical history of pancreatitis, hypertriglyceridemia, ethanol abuse who presented last night ER with chief complaint of abdominal pain. Patient states abdominal pain started almost a week and half ago and had been gradually getting worse. It was worse yesterday 10 out and severe, sharp, intermittent, mostly concentrated and upper abdomen with no radiation. Pain was worse with movement and eating food. Also had nausea vomiting and vomitus was yellowish in color. He had couple of episodes of loose bowel movements last week but none since then. He denies any hematochezia melena. Patient denies fever, chest pain, shortness of breath, cough, headache or constipation. All other systems were reviewed and were negative Was recently started on doxycycline as an outpatient Lyme disease. He continues to drink 5-6 drinks every day. He claims that he takes his medications regularly and may have missed 1 or 2 doses here and there but otherwise consistently takes his medication including the 1 for high cholesterol. He denies any smoking or any other drug use. He works as a resistance welder Review of Systems Review of Systems: All systems reviewed & are unremarkable except as noted in HPI and below Exam Narrative: General: Pt is alert awake and in NAD Lungs/Chest: Trachea central Clear BS B/L, No crackles or wheezing. Cardiac: RRR. Normal S1 S2. No murmurs Circulation: Pedal pulses are intact and symmetrical. Abdomen: Normal bowel sounds.. Soft tender to palpation in upper quadrants and epigastrium
[2021-11-09 09:09] LABS: Triglycerides > 2625 mg/dL (<150)
[2021-11-09] MEDS: FOLIC ACID 1 MG/0.2 ML INJ IV PUSH (09:40)
[2021-11-09] MEDS: THIAMINE HCL 200 MG/2 ML VIAL 100 MG IV PUSH (09:40)
[2021-11-09 09:43] LABS: Glucose Point of Care 190 mg/dl (65-105)
[2021-11-09 10:06] LABS: Alanine Aminotransferase 189 U/L (6-50); Albumin Level 3.5 g/dL (3.5-5.1); Alkaline Phosphatase 98 U/L (38-126); Anion Gap 12 mmol/L (8-16); Aspartate Amino Transferase 192 U/L (17-59); Bilirubin,Total 2.3 mg/dL (0.2-1.3); Blood Urea Nitrogen 6 mg/dL (9-20); Calcium 7.9 mg/dL (8.4-10.2); Carbon Dioxide 19 mmol/L (22-30); Chloride 104 mmol/L (98-107); Estimated CRCL calculation 121 ml/min; Estimated Glomerular Filt Rate > 60; Magnesium 1.6 mg/dL (1.6-2.3); Phosphorus 1.9 mg/dL (2.5-4.5); Potassium 3.6 mmol/L (3.4-5.0); Sodium 135 mmol/L (137-145)
[2021-11-09 11:13] LABS: Glucose Point of Care 114 mg/dl (65-105)
[2021-11-09] MEDS: CALCIUM GLUC 2,000 MG/NS 100ML 2,000 MG/100 ML BAG 100 MG IVPB (11:23)
[2021-11-09] MEDS: POTASSIUM PHOS,M-BASIC-D-BASIC 15 MMOL in SODIUM CHLORIDE 0.9% IV 250 ML 63.75 MMOL IVPB (11:38)
[2021-11-09 12:13] LABS: Glucose Point of Care 97 mg/dl (65-105)
--- NOTE | 2021-11-09 12:38 | WPDGICN ---
Assessment and Plan Assessment and plan (1) Acute pancreatitis: Code(s): K85.90 - Acute pancreatitis without necrosis or infection, unspecified Status: Acute Assessment and Plan: This is his 2nd episode of pancreatitis. Most likely his is due to alcohol and triglycerides. His CT scan shows: Acute interstitial pancreatitis of the pancreatic tail with adjacent localized small bowel ileus. 2.4 cm pancreatic head and 4.3 cm right paracolic gutter rim enhancing fluid collections, likely represent pseudocysts from prior episode of pancreatitis. Hepatomegaly and steatosis. Possible cystitis. he understands that he cannot drink alcohol for an extended period of time and in fact I told him that it would be a series mistake to restart any alcohol. I explained that months a person has had pancreatitis, it does not seem to take much for it to come back an EGD episode can be worse. I reminded him that pancreatitis can be fatal. He understands that he cannot be fed until he is in much less pain. Lipase is 584 on this admission. One week ago it was 61, barely elevated pre (2) Hypertriglyceridemia: Code(s): E78.1 - Pure hyperglyceridemia Status: Acute Assessment and Plan: His triglyceride levels are office chart, greater than 2625. He had the same reading when he was here in March. In other words the medication has had no affect on his triglyceride levels. Drinking alcohol especially beer contributes to that to some extent . he has been started on insulin drip in order to help lower the triglyceride levels. (3) Alcohol abuse: Code(s): F10.10 - Alcohol abuse, uncomplicated Status: Acute Assessment and Plan: we discussed a removal of alcohol an acute pancreatitis and he admits that he was told this in March. We will need to continue to area counselor him to stay away from alcohol (4) Lyme disease: Code(s): A69.20 - Lyme disease, unspecified Status: Acute Assessment and Plan: this is a new diagnosis for which he just 2 days ago was started on dicyclomine. He believes that he may have had a tick bite (5) Elevated liver enzymes: Code(s): R74.8 - Abnormal levels of other serum enzymes Status: Acute Assessment and Plan: He denies any history of hepatitis or liver disease. His ALT was 623 last week. It is 189 today. AST is also elevated and bilirubin is 2.3. He is definitely at risk for cirrhosis. He will need close follow-up of his liver function after discharge. He will need to abstain from alcohol completely and we will need to area counselor him to avoid recidivism. (6) Electrolyte abnormality: Code(s): E87.8 - Other disorders of electrolyte and fluid balance, not elsewhere classified Status: Acute Assessment and Plan: calcium is somewhat low at 7.9. We will need to keep an eye on that. Likewise potassium is low at 1.9. Because he abuses alcohol this may drop further and could result in a hypophosphatemic syndrome. GI Consult Note Consult date/time: 11/09/21 12:38 HPI: Gainni Lang is a 36 year old male who just last week was found have Lyme disease when he was being investigated for generalized malaise, body aches, nausea and some vomiting. He has also tested for COVID and that was negative. He was started on doxycycline just a couple of days ago and later that day, Sunday he began have abdominal pain which became much more intense yesterday. The pain is primarily in the upper abdomen towards the left. He recognizes it as identical to that which he had in March when he was hospitalized with acute pancreatitis. He had been found to have markedly elevated triglyceride levels. He was started on Vascepta, and states that he has been taking it faithfully no not always twice a day as directed. He also continues to drink regularly. He admits that he drinks fiber 6 beers every day. He says that he was counseled to avoid
[2021-11-09 13:06] LABS: Glucose Point of Care 114 mg/dl (65-105)
--- NOTE | 2021-11-09 13:11 | PM.IMHP ---
H&P: HPI History of Present Illness Date/Time: 11/09/21 13:11 Chief Complaint: 36-year-old male with past medical history of pancreatitis, hypertriglyceridemia, ethanol abuse who presented last night ER with chief complaint of abdominal pain.? Patient states abdominal pain started almost a week and half ago and had been gradually getting worse.? It was worse yesterday 10 out and severe, sharp, intermittent, mostly concentrated and upper abdomen with no radiation.? Pain was worse with movement and eating food.? Also had nausea vomiting and vomitus was yellowish in color.? He had couple of episodes of loose bowel movements last week but none since then.? He denies any hematochezia melena. [facility] Past Medical History Medical History Acute pancreatitis ETOH abuse HTN (hypertension) Family History Family History Grandparent Acute myocardial infarction Chronic obstructive pulmonary disease Hypertension History of blood clots Mother Diabetes mellitus Hypertension Father Hypertension Social History Social History Smoking packs per day: 1 Smoking cigarettes per day: 20.0 Years smoked: 10 Smoking pack-years: 10.00 Smoking status: Former smoker Tobacco type: cigarettes Second hand tobacco smoke exposure: No Alcohol intake: current Drinks per week: 35 Substance use: never Substance use type: does not use Last use: [id number] Gender identity (if verbalized by the patient): Male Sexual Orientation (if Verbalized by the Patient): Straight or Heterosexual Spiritual care concerns: No Agree to blood products: Yes Meds Home Medications and Allergies Home Medications Medication Instructions Recorded Confirmed Type amlodipine 10 mg tablet 10 mg PO DAILY #90 tabs 10/06/21 11/09/21 Rx icosapent ethyl 1 gram capsule 2 g PO BID #120 caps 10/12/21 11/09/21 Rx (Vascepa) doxycycline hyclate 100 mg capsule 100 mg PO BID 14 days #28 caps 11/07/21 11/09/21 Rx ondansetron 4 mg disintegrating 4 mg PO Q6H PRN Nausea And Vomiting 11/09/21 11/09/21 History tablet Allergies Allergy/AdvReac Type Severity Reaction Status Date / Time Penicillins AdvReac Unknown Other Verified 11/09/21 03:31 Vital Signs Vital Signs - 24 hr 11/08/21 20:51 11/08/21 21:29 11/08/21 21:30 Temperature 97.6 F Pulse Rate 101 H 95 94 Pulse Rate [Right Radial Palpation] Respiratory Rate 16 16 20 Blood Pressure 139/95 H Pulse Oximetry 99 97 99 Oxygen Delivery Room Air 11/08/21 21:45 11/08/21 22:00 11/08/21 22:15 Temperature Pulse Rate 90 90 92 Pulse Rate [Right Radial Palpation] Respiratory Rate 19 19 18 Blood Pressure Pulse Oximetry 97 97 96 Oxygen Delivery 11/08/21 22:30 11/08/21 22:31 11/08/21 22:45 Temperature Pulse Rate 93 92 92 Pulse Rate [Right Radial Palpation] Respiratory Rate 20 20 23 H Blood Pressure 125/89 Pulse Oximetry 97 97 98 Oxygen Delivery 11/08/21 22:46 11/08/21 23:03 11/09/21 03:46 Temperature Pulse Rate 82 90 Pulse Rate [Right Radial Palpation] 80 Respiratory Rate 14 22 H Blood Pressure 116/77 Pulse Oximetry 98 99 Oxygen Delivery 11/09/21 04:53 11/09/21 04:00 11/09/21 03:45 Temperature 98.2 F Pulse Rate 95 Pulse Rate [Right Radial Palpation] 81 Respiratory Rate 26 H Blood Pressure 125/76 Pulse Oximetry 98 Oxygen Delivery Room Air 11/09/21 06:00 11/09/21 07:22 11/09/21 08:00 Temperature 99.2 F Pulse Rate 79 75 Pulse Rate [Right Radial Palpation] 82 Respiratory Rate 13 18 Blood Pressure 111/66 115/84 Pulse Oximetry 93 97 Oxygen Delivery 11/09/21 08:32 11/09/21 08:00 11/09/21 08:00 Temperature Pulse Rate 75 Pulse Rate [Right Radial Palpation] Respiratory Rate Blood Pressure Pulse Oximetry 97
[2021-11-09 14:05] LABS: Glucose Point of Care 122 mg/dl (65-105)
[2021-11-09 15:15] LABS: Glucose Point of Care 131 mg/dl (65-105)
[2021-11-09 16:03] LABS: Glucose Point of Care 129 mg/dl (65-105)
[2021-11-09 17:07] LABS: Glucose Point of Care 122 mg/dl (65-105)
[2021-11-09 18:06] LABS: Glucose Point of Care 123 mg/dl (65-105)
[2021-11-09 19:05] LABS: Glucose Point of Care 100 mg/dl (65-105)
[2021-11-09 20:22] LABS: Glucose Point of Care 130 mg/dl (65-105)
[2021-11-09 21:13] LABS: Glucose Point of Care 117 mg/dl (65-105)
[2021-11-09 22:04] LABS: Glucose Point of Care 112 mg/dl (65-105)
[2021-11-09 23:13] LABS: Glucose Point of Care 117 mg/dl (65-105)
[2021-11-10] VITALS (18 sets, daily range): BP systolic 100–145; BP diastolic 68–94; PULSE 77–105; RESP 15–26; TEMP 37.1–38.8; O2SAT 91–98
[2021-11-10 00:08] LABS: Glucose Point of Care 142 mg/dl (65-105)
[2021-11-10 01:08] LABS: Glucose Point of Care 149 mg/dl (65-105)
[2021-11-10 02:06] LABS: Glucose Point of Care 136 mg/dl (65-105)
[2021-11-10] MEDS: HYDROmorphone HCL INJ (*CRX) 1 MG/ML SYR 0.5 MG IV PUSH ×5 (03:10→20:44)
[2021-11-10 03:11] LABS: Glucose Point of Care 115 mg/dl (65-105)
[2021-11-10 04:04] LABS: Glucose Point of Care 119 mg/dl (65-105)
[2021-11-10 04:27] LABS: Basophils Percent Auto 0.4 % (0.2-1.2); Eosinophils Percent Auto 0.5 % (0-4.4); Hematocrit 39.5 % (42.0-52.0); Hemoglobin 13.2 g/dL (14.0-18.0); Immature Granulocyte Absolute 0.03 K/mm3 (0.00-0.031); Immature Granulocyte Percent A 0.4 % (0-0.5); Immature Platelet Fraction Pct 11.5 % (0.9-11.2); Lymphocytes Absolute Auto 1.49 K/mm3 (0.9-3.2); Lymphocytes Percent Auto 18.1 % (18.3-44.2); Mean Corpuscular HGB Conc 33.4 g/dl (32-36); Mean Corpuscular Hemoglobin 32.1 pg (26-34); Mean Corpuscular Volume 96.1 fl (80-100); Mean Platelet Volume 11.4 fl (7.4-10.4); Monocytes Absolute Auto 0.3 K/mm3 (0.1-0.6); Monocytes Percent Auto 3.5 % (2.6-8.5); Neutrophils Absolute Auto 6.4 K/mm3 (1.3-6.7); Neutrophils Percent Auto 77.1 % (45.5-73.1); Platelet Count Result 97 k/mm3 (150-375); Red Blood Count 4.11 M/mm3 (4.6-6.20); Red Cell Distribution Width 12.4 % (11.5-14.5); White Blood Count 8.2 K/mm3 (4.5-10.0)
[2021-11-10 05:07] LABS: Glucose Point of Care 106 mg/dl (65-105)
[2021-11-10 05:14] LABS: Alanine Aminotransferase 113 U/L (6-50); Albumin Level 3.1 g/dL (3.5-5.1); Alkaline Phosphatase 70 U/L (38-126); Anion Gap 7 mmol/L (8-16); Aspartate Amino Transferase 99 U/L (17-59); Bilirubin,Total 1.5 mg/dL (0.2-1.3); Calcium 8.8 mg/dL (8.4-10.2); Carbon Dioxide 26 mmol/L (22-30); Chloride 101 mmol/L (98-107); Estimated CRCL calculation 140 ml/min; Estimated Glomerular Filt Rate > 60; Glucose 79 mg/dL (65-110); Lipase 367 U/L (23-300); Magnesium 1.7 mg/dL (1.6-2.3); Potassium 4.2 mmol/L (3.4-5.0); Sodium 134 mmol/L (137-145)
[2021-11-10 05:15] LABS: Blood Urea Nitrogen < 2 mg/dL (9-20)
[2021-11-10 05:16] LABS: Triglycerides 1205 mg/dL (<150)
[2021-11-10] MEDS: DOXYCYCLINE 100 MG/NS 100 ML 100 MG/100 ML BAG IVPB ×2 (06:10→17:59)
[2021-11-10 06:15] LABS: Glucose Point of Care 119 mg/dl (65-105)
--- NOTE | 2021-11-10 07:17 | WPDGIPROGNO ---
Progress Note: A&P Assessment and Plan (1) Acute pancreatitis: Code(s): K85.90 - Acute pancreatitis without necrosis or infection, unspecified Status: Acute Assessment and Plan: This is his 2nd episode of pancreatitis. Most likely his is due to alcohol and triglycerides. His CT scan shows: Acute interstitial pancreatitis of the pancreatic tail with adjacent localized small bowel ileus. 2.4 cm pancreatic head and 4.3 cm right paracolic gutter rim enhancing fluid collections, likely represent pseudocysts from prior episode of pancreatitis. Hepatomegaly and steatosis. Possible cystitis. he understands that he cannot drink alcohol for an extended period of time and in fact I told him that it would be a series mistake to restart any alcohol. I explained that months a person has had pancreatitis, it does not seem to take much for it to come back an EGD episode can be worse. I reminded him that pancreatitis can be fatal. He understands that he cannot be fed until he is in much less pain. Lipase is 584 on this admission. One week ago it was 61, barely elevated pre 11/10/2021 lipase is down to 367. His pain has decreased somewhat. I think we can go ahead and start him on a clear liquid diet. (2) Hypertriglyceridemia: Code(s): E78.1 - Pure hyperglyceridemia Status: Acute Assessment and Plan: His triglyceride levels are office chart, greater than 2625. He had the same reading when he was here in March. In other words the medication has had no affect on his triglyceride levels. Drinking alcohol especially beer contributes to that to some extent . he has been started on insulin drip in order to help lower the triglyceride levels. 11/10/2021 triglyceride level has come down to 1200. (3) Alcohol abuse: Code(s): F10.10 - Alcohol abuse, uncomplicated Status: Acute Assessment and Plan: we discussed a removal of alcohol an acute pancreatitis and he admits that he was told this in March. We will need to continue to senior vice president & general counsel him to stay away from alcohol 11/10/2021. We had another discussion about alcohol abuse. He seems committed to stopping it completely, verbalizing his concerns about damage to the liver and pancreas. No evidence of alcohol withdrawal syndrome in terms of confusion. (4) Lyme disease: Code(s): A69.20 - Lyme disease, unspecified Status: Acute Assessment and Plan: this is a new diagnosis for which he just 2 days ago was started on dicyclomine. He believes that he may have had a tick bite (5) Elevated liver enzymes: Code(s): R74.8 - Abnormal levels of other serum enzymes Status: Acute Assessment and Plan: He denies any history of hepatitis or liver disease. His ALT was 623 last week. It is 189 today. AST is also elevated and bilirubin is 2.3. He is definitely at risk for cirrhosis. He will need close follow-up of his liver function after discharge. He will need to abstain from alcohol completely and we will need to senior vice president & general counsel him to avoid recidivism. 2021 LFTs are improved. Bilirubin down to 1.5, AST 99 and ALT 113 (6) Electrolyte abnormality: Code(s): E87.8 - Other disorders of electrolyte and fluid balance, not elsewhere classified Status: Acute Assessment and Plan: calcium is somewhat low at 7.9. We will need to keep an eye on that. Likewise potassium is low at 1.9. Because he abuses alcohol this may drop further and could result in a hypophosphatemic syndrome. 11/10/2021 calcium is normal today Subjective Date/time seen: Gianni Lang is a 36 year old male? who just last week was found have Lyme disease when he was being investigated for generalized malaise, body aches, nausea and some vomiting.? He has also tested for COVID and that was negative.? He was started on doxycycline just a couple of days ago and later that day, Sunday he began have abdominal pain which became much more
[2021-11-10 07:21] LABS: Phosphorus 2.6 mg/dL (2.5-4.5)
[2021-11-10 07:32] LABS: Glucose Point of Care 128 mg/dl (65-105)
[2021-11-10] MEDS: DEXTROSE 5%/LACTATED RINGERS 1,000 ML 150 ML IV CONT ×2 (08:30→15:01)
[2021-11-10] MEDS: FOLIC ACID 1 MG/0.2 ML INJ IV PUSH (08:30)
[2021-11-10] MEDS: THIAMINE HCL 200 MG/2 ML VIAL 100 MG IV PUSH (08:30)
[2021-11-10 08:59] LABS: Glucose Point of Care 134 mg/dl (65-105)
--- NOTE | 2021-11-10 09:13 | WPDINTPN ---
Progress Note: A&P Assessment and Plan (1) Hypertriglyceridemia: Code(s): E78.1 - Pure hyperglyceridemia Status: Acute Assessment and Plan: Patient currently on insulin infusion and D5 LR which will be continue Triglyceride levels are improved and is down to 1205 Patient has chronic hypertriglyceridemia and is on Vescapa. Requested patient to have a family member bring his pills since we do not have that in our formulary Once levels are in reasonable range and abdominal pain improves, patient will be resumed on Vescapa. May have to add fibrate (2) Acute pancreatitis: Code(s): K85.90 - Acute pancreatitis without necrosis or infection, unspecified Status: Acute Assessment and Plan: Acute recurrent pancreatitis secondary to hypertriglyceridemia and alcohol abuse CT scan of abdomen and pelvis showed Acute interstitial pancreatitis of the pancreatic tail with adjacent localized small bowel ileus. 2.4 cm pancreatic head and 4.3 cm right paracolic gutter rim enhancing fluid collections, likely represent pseudocysts from prior episode of pancreatitis. Hepatomegaly and steatosis. Possible cystitis. Ultrasound showed Hepatomegaly. Echogenic liver, most commonly due to steatosis but also can be seen with hepatitis and fibrosis. Lipase level is down to 367 Continue insulin infusion and IV fluids for hypertriglyceridemia IV fluids Clear liquid diet Pain control GI following (3) Essential (primary) hypertension: Code(s): I10 - Essential (primary) hypertension Status: Acute Assessment and Plan: Blood pressure in controlled range. Hold amlodipine. Currently NPO Treat as needed (4) Lyme disease: Code(s): A69.20 - Lyme disease, unspecified Status: Acute Assessment and Plan: Continue doxycycline but switched to IV (5) Alcohol abuse: Code(s): F10.10 - Alcohol abuse, uncomplicated Status: Acute Assessment and Plan: Patient was counseled and encouraged to quit alcohol and explained that unless patient completely abstains from alcohol his hypertriglyceridemia will not be controlled and he will continue to have recurrent episodes of pancreatitis. Patient does claim today to be motivated in quitting this time. Continue folic acid and thiamine (6) Electrolyte abnormality: Code(s): E87.8 - Other disorders of electrolyte and fluid balance, not elsewhere classified Status: Acute Assessment and Plan: Replace low magnesium (7) SIRS (systemic inflammatory response syndrome): Code(s): R65.10 - Systemic inflammatory response syndrome (SIRS) of non-infectious origin without acute organ dysfunction Status: Acute Assessment and Plan: Patient has low-grade fever likely secondary to pancreatitis. His WBCs normal. Lactic acid was normal on presentation Will check cultures if spikes fever Plan DVT prophylaxis -SCDs while in bed. Patient is ambulating Nutrition -clear liquid diet Code Status - Full Code Subjective Date/time seen: 11/10/21 Patient continues to be insulin infusion IV fluids. He states his pain persists and is intermittent. He rates his pain to 5/10. Pain is worse with movement and deep breathing. Pain is in center of the abdomen and radiates to worse left. He states he does not have any nausea vomiting but feels bloated whenever he drinks water. He denies any diarrhea and has not had any bowel movement overnight. He denies any fever chest pain shortness for breath or cough. All other systems were reviewed and were negative. Has been having low-grade fever Review of Systems Review of Systems: All systems reviewed & are unremarkable except as noted in HPI and below Exam Narrative: General: Pt is alert awake and in NAD Lungs/Chest: Trachea central Clear BS B/L, No crackles or wheezing. Cardiac: RRR. Normal S1 S2. No murmurs Circulation: Pedal pulses are intact and symmetrical. Abdomen: Normal keli
[2021-11-10 10:07] LABS: Glucose Point of Care 125 mg/dl (65-105)
[2021-11-10 11:10] LABS: Glucose Point of Care 125 mg/dl (65-105)
[2021-11-10 12:04] LABS: Glucose Point of Care 113 mg/dl (65-105)
[2021-11-10 13:07] LABS: Glucose Point of Care 125 mg/dl (65-105)
[2021-11-10 13:55] LABS: Glucose Point of Care 123 mg/dl (65-105)
[2021-11-10 15:03] LABS: Glucose Point of Care 120 mg/dl (65-105)
[2021-11-10 16:14] LABS: Glucose Point of Care 103 mg/dl (65-105)
[2021-11-10 17:02] LABS: Glucose Point of Care 109 mg/dl (65-105)
[2021-11-10 17:22] LABS: Triglycerides 619 mg/dL (<150)
--- NOTE | 2021-11-10 18:35 | PC.NURSE ---
Spoke with Dr. Rivers regarding Triglyceride level of 619. New orders to stop insulin gtt, decrease fluid rate to 75ml/hr. Also informed Dr. Rivers of pt having a fever of 101.1. New order for Tylenol 650mg PO PRN q4h for fever, and to start Aztreonam per pharmacist's recommendations for possible secondary infection related to pancreatitis.
[2021-11-10 18:53] LABS: Glucose Point of Care 113 mg/dl (65-105)
[2021-11-10] MEDS: AZTREONAM 2 GM in SODIUM CHLORIDE 0.9% IV 100 ML 200 ML IVPB (20:37)
[2021-11-11] VITALS (62 sets, daily range): BP systolic 97–140; BP diastolic 75–96; PULSE 65–141; RESP 11–28; TEMP 36.9–37.3; O2SAT 91–97
[2021-11-11] MEDS: DEXTROSE 5%/LACTATED RINGERS 1,000 ML 75 ML IV CONT (01:07)
[2021-11-11] MEDS: HYDROmorphone HCL INJ (*CRX) 1 MG/ML SYR 0.5 MG IV PUSH ×6 (02:16→21:49)
[2021-11-11] MEDS: AZTREONAM 2 GM in SODIUM CHLORIDE 0.9% IV 100 ML 200 ML IVPB (03:35)
[2021-11-11 04:29] LABS: Hemoglobin 11.8 g/dL (14.0-18.0); Immature Platelet Fraction Pct 11.9 % (0.9-11.2); Mean Corpuscular HGB Conc 32.8 g/dl (32-36); Mean Corpuscular Hemoglobin 31.4 pg (26-34); Mean Corpuscular Volume 95.7 fl (80-100); Mean Platelet Volume 11.6 fl (7.4-10.4); Platelet Count Result 85 k/mm3 (150-375); Red Blood Count 3.76 M/mm3 (4.6-6.20); Red Cell Distribution Width 12.4 % (11.5-14.5)
[2021-11-11 04:38] LABS: Alanine Aminotransferase 90 U/L (6-50); Alkaline Phosphatase 76 U/L (38-126); Anion Gap 3 mmol/L (8-16); Aspartate Amino Transferase 64 U/L (17-59); Bilirubin,Total 1.8 mg/dL (0.2-1.3); Blood Urea Nitrogen 3 mg/dL (9-20); Calcium 9.8 mg/dL (8.4-10.2); Carbon Dioxide 30 mmol/L (22-30); Chloride 102 mmol/L (98-107); Estimated CRCL calculation 122 ml/min; Estimated Glomerular Filt Rate > 60; Glucose 110 mg/dL (65-110); Lipase 146 U/L (23-300); Magnesium 1.8 mg/dL (1.6-2.3); Potassium 4.2 mmol/L (3.4-5.0); Sodium 135 mmol/L (137-145); Triglycerides 348 mg/dL (<150)
[2021-11-11] MEDS: DOXYCYCLINE 100 MG/NS 100 ML 100 MG/100 ML BAG IVPB ×2 (05:27→18:32)
--- NOTE | 2021-11-11 07:12 | WPDGIPROGNO ---
Progress Note: A&P Assessment and Plan (1) Acute pancreatitis: Code(s): K85.90 - Acute pancreatitis without necrosis or infection, unspecified Status: Acute Assessment and Plan: This is his 2nd episode of pancreatitis. Most likely his is due to alcohol and triglycerides. His CT scan shows: Acute interstitial pancreatitis of the pancreatic tail with adjacent localized small bowel ileus. 2.4 cm pancreatic head and 4.3 cm right paracolic gutter rim enhancing fluid collections, likely represent pseudocysts from prior episode of pancreatitis. Hepatomegaly and steatosis. Possible cystitis. he understands that he cannot drink alcohol for an extended period of time and in fact I told him that it would be a series mistake to restart any alcohol. I explained that months a person has had pancreatitis, it does not seem to take much for it to come back an EGD episode can be worse. I reminded him that pancreatitis can be fatal. He understands that he cannot be fed until he is in much less pain. Lipase is 584 on this admission. One week ago it was 61, barely elevated pre 11/10/2021 lipase is down to 367. His pain has decreased somewhat. I think we can go ahead and start him on a clear liquid diet. 11/11/2021 he is feeling better each day. Tolerating clear liquids. I will advance him to full liquids with pancreatic enzyme supplements. (2) Hypertriglyceridemia: Code(s): E78.1 - Pure hyperglyceridemia Status: Acute Assessment and Plan: His triglyceride levels are office chart, greater than 2625. He had the same reading when he was here in March. In other words the medication has had no affect on his triglyceride levels. Drinking alcohol especially beer contributes to that to some extent . he has been started on insulin drip in order to help lower the triglyceride levels. 11/10/2021 triglyceride level has come down to 1200. 11/11/2021 his triglycerides are down to 348. (3) Alcohol abuse: Code(s): F10.10 - Alcohol abuse, uncomplicated Status: Acute Assessment and Plan: we discussed a removal of alcohol an acute pancreatitis and he admits that he was told this in March. We will need to continue to education counselor him to stay away from alcohol 11/10/2021. We had another discussion about alcohol abuse. He seems committed to stopping it completely, verbalizing his concerns about damage to the liver and pancreas. No evidence of alcohol withdrawal syndrome in terms of confusion. 11/11/2021 he again confirmed his commitment to stay away from alcohol. (4) Lyme disease: Code(s): A69.20 - Lyme disease, unspecified Status: Acute Assessment and Plan: this is a new diagnosis for which he just 2 days ago was started on dicyclomine. He believes that he may have had a tick bite (5) Elevated liver enzymes: Code(s): R74.8 - Abnormal levels of other serum enzymes Status: Acute Assessment and Plan: He denies any history of hepatitis or liver disease. His ALT was 623 last week. It is 189 today. AST is also elevated and bilirubin is 2.3. He is definitely at risk for cirrhosis. He will need close follow-up of his liver function after discharge. He will need to abstain from alcohol completely and we will need to education counselor him to avoid recidivism. 2021 LFTs are improved. Bilirubin down to 1.5, AST 99 and ALT 113 11/11/2021 although bilirubin still elevated slightly, AST has come down to 64. (6) Electrolyte abnormality: Code(s): E87.8 - Other disorders of electrolyte and fluid balance, not elsewhere classified Status: Acute Assessment and Plan: calcium is somewhat low at 7.9. We will need to keep an eye on that. Likewise potassium is low at 1.9. Because he abuses alcohol this may drop further and could result in a hypophosphatemic syndrome. 11/10/2021 calcium is normal today Subjective Date/time seen: Gianni Lang is
[2021-11-11] MEDS: FOLIC ACID 1 MG/0.2 ML INJ IV PUSH (08:26)
[2021-11-11] MEDS: LIPASE/AMYLASE/PROTEASE 12,000 UNITS CAP 2 CAP PO ×4 (08:26→18:32)
[2021-11-11] MEDS: THIAMINE HCL 200 MG/2 ML VIAL 100 MG IV PUSH (08:26)
--- NOTE | 2021-11-11 08:32 | WPDINTPN ---
Progress Note: A&P Assessment and Plan (1) Hypertriglyceridemia: Code(s): E78.1 - Pure hyperglyceridemia Status: Acute Assessment and Plan: Patient was treated with insulin infusion and D5 LR His triglyceride levels have improved and I have discontinued insulin infusion Patient has chronic hypertriglyceridemia and is on Vascepa which will be resumed May have to add fibrate (2) Acute pancreatitis: Code(s): K85.90 - Acute pancreatitis without necrosis or infection, unspecified Status: Acute Assessment and Plan: Acute recurrent pancreatitis secondary to hypertriglyceridemia and alcohol abuse CT scan of abdomen and pelvis showed Acute interstitial pancreatitis of the pancreatic tail with adjacent localized small bowel ileus. 2.4 cm pancreatic head and 4.3 cm right paracolic gutter rim enhancing fluid collections, likely represent pseudocysts from prior episode of pancreatitis. Hepatomegaly and steatosis. Possible cystitis. Ultrasound showed Hepatomegaly. Echogenic liver, most commonly due to steatosis but also can be seen with hepatitis and fibrosis. Lipase level has normalized Triglyceride level is improved Will discontinue IV fluids Continue Clear liquid diet Pain control GI following Since patient had pseudocyst and continues to have pain, will seek General surgery opinion (3) Essential (primary) hypertension: Code(s): I10 - Essential (primary) hypertension Status: Acute Assessment and Plan: Blood pressure in controlled range. Hold amlodipine. Currently NPO Treat as needed (4) Lyme disease: Code(s): A69.20 - Lyme disease, unspecified Status: Acute Assessment and Plan: Continue doxycycline but switched to IV (5) Alcohol abuse: Code(s): F10.10 - Alcohol abuse, uncomplicated Status: Acute Assessment and Plan: Patient was counseled and encouraged to quit alcohol and explained that unless patient completely abstains from alcohol his hypertriglyceridemia will not be controlled and he will continue to have recurrent episodes of pancreatitis. Patient does claim today to be motivated in quitting this time. Continue folic acid and thiamine (6) Electrolyte abnormality: Code(s): E87.8 - Other disorders of electrolyte and fluid balance, not elsewhere classified Status: Acute Assessment and Plan: Magnesium replaced (7) SIRS (systemic inflammatory response syndrome): Code(s): R65.10 - Systemic inflammatory response syndrome (SIRS) of non-infectious origin without acute organ dysfunction Status: Acute Assessment and Plan: Patient has low-grade fever likely secondary to pancreatitis. His WBCs normal. Lactic acid was normal on presentation Will check cultures if spikes fever (8) Fever: Code(s): R50.9 - Fever, unspecified Status: Acute Assessment and Plan: Patient earlier was having low-grade fevers but yesterday he started spiking fevers. WBCs normal Blood culture sent Empiric aztreonam started Check procalcitonin level Plan DVT prophylaxis -start Lovenox Nutrition -clear liquid diet Code Status - Full Code Incentive spirometry, up in chair Transfer out of ICU Subjective Date/time seen: 11/11/21 08:32 Patient states abdominal pain is better but is still present. Mostly located in epigastrium and left upper quarter. He rates it at 3 to 5/10, crampy. He states he was able to eat some broth yesterday but feels bloated whenever he eats. He denies any nausea vomiting. He is afebrile with adequate urine output. He is on room air. He denies any fever chest pain cough shortness of bread All other systems were reviewed and were negative Review of Systems Review of Systems: All systems reviewed & are unremarkable except as noted in HPI and below Exam Narrative: General: Pt is alert awake and in NAD Lungs/Chest: Trachea central Clear BS B/L, No crackles or wheezing. Cardia
[2021-11-11 09:45] LABS: Procalcitonin 0.4 ng/mL
--- NOTE | 2021-11-11 10:08 | PHAR ---
HOME MED: VASCEPA (ICOSAPENT ETHYL) 1 GRAM CAPSULES; TAKE 2 CAPSULES BY MOUTH TWICE A DAY. TAKE WITH FOOD. DO NOT CHEW OR CRUSH. VERIFIED BY PHARMACY.
[2021-11-11] MEDS: ENOXAPARIN 40 MG/0.4 ML SYRINGE SUB-Q (10:57)
[2021-11-11] MEDS: AZTREONAM 2 GM in SODIUM CHLORIDE 0.9% IV 100 ML IVPB ×2 (11:00→19:53)
[2021-11-12] VITALS: PULSE 85
[2021-11-12 04:00] VITALS: PULSE 77
[2021-11-12 04:24] LABS: Hematocrit 34.5 % (42.0-52.0); Hemoglobin 11.2 g/dL (14.0-18.0); Immature Platelet Fraction Pct 10.6 % (0.9-11.2); Mean Corpuscular HGB Conc 32.5 g/dl (32-36); Mean Corpuscular Hemoglobin 31.8 pg (26-34); Mean Platelet Volume 11.5 fl (7.4-10.4); Platelet Count Result 117 k/mm3 (150-375); Red Blood Count 3.52 M/mm3 (4.6-6.20); Red Cell Distribution Width 12.5 % (11.5-14.5); White Blood Count 6.7 K/mm3 (4.5-10.0)
[2021-11-12] MEDS: HYDROmorphone HCL INJ (*CRX) 1 MG/ML SYR 0.5 MG IV PUSH ×5 (04:28→20:43)
[2021-11-12 04:32] VITALS: BP 117/82; PULSE 93; RESP 14; TEMP 37.4; O2SAT 93
[2021-11-12 04:32] LABS: Alanine Aminotransferase 74 U/L (6-50); Albumin Level 3.3 g/dL (3.5-5.1); Alkaline Phosphatase 77 U/L (38-126); Anion Gap 6 mmol/L (8-16); Aspartate Amino Transferase 49 U/L (17-59); Bilirubin,Total 1.9 mg/dL (0.2-1.3); Blood Urea Nitrogen 8 mg/dL (9-20); Calcium 10.4 mg/dL (8.4-10.2); Carbon Dioxide 30 mmol/L (22-30); Chloride 99 mmol/L (98-107); Estimated CRCL calculation 115 ml/min; Estimated Glomerular Filt Rate > 60; Glucose 95 mg/dL (65-110); Lipase 122 U/L (23-300); Magnesium 1.9 mg/dL (1.6-2.3); Potassium 4.3 mmol/L (3.4-5.0); Sodium 135 mmol/L (137-145); Triglycerides 420 mg/dL (<150)
[2021-11-12] MEDS: AZTREONAM 2 GM in SODIUM CHLORIDE 0.9% IV 100 ML IVPB (04:33)
[2021-11-12] MEDS: DOXYCYCLINE 100 MG/NS 100 ML 100 MG/100 ML BAG IVPB ×2 (06:17→17:19)
[2021-11-12 08:00] VITALS: BP 123/84; PULSE 87; PULSE 92; RESP 15; TEMP 36.7; O2SAT 95; O2SAT 98
[2021-11-12] MEDS: FOLIC ACID 1 MG/0.2 ML INJ IV PUSH (09:31)
[2021-11-12] MEDS: ENOXAPARIN 40 MG/0.4 ML SYRINGE SUB-Q (09:33)
[2021-11-12] MEDS: THIAMINE HCL 200 MG/2 ML VIAL 100 MG IV PUSH (09:34)
[2021-11-12] MEDS: AZTREONAM 2 GM in SODIUM CHLORIDE 0.9% IV 100 ML 200 ML IVPB ×2 (13:08→20:42)
[2021-11-12] MEDS: LIPASE/AMYLASE/PROTEASE 12,000 UNITS CAP 2 CAP PO ×2 (13:08→17:19)
--- NOTE | 2021-11-12 14:03 | PM.IMPN ---
Progress Note: A&P Assessment and Plan (1) Hypertriglyceridemia: Code(s): E78.1 - Pure hyperglyceridemia Status: Acute Assessment and Plan: Patient was treated with insulin infusion and D5 LR His triglyceride levels have improved and I have discontinued insulin infusion Patient has chronic hypertriglyceridemia and is on Vascepa which will be resumed May have to add fibrate (2) Acute pancreatitis: Code(s): K85.90 - Acute pancreatitis without necrosis or infection, unspecified Status: Acute Assessment and Plan: Acute recurrent pancreatitis secondary to hypertriglyceridemia and alcohol abuse lipase improved tolerating cld no changes today montior labs (3) Essential (primary) hypertension: Code(s): I10 - Essential (primary) hypertension Status: Acute Assessment and Plan: Blood pressure in controlled range. Hold amlodipine. Currently NPO Treat as needed (4) Lyme disease: Code(s): A69.20 - Lyme disease, unspecified Status: Acute Assessment and Plan: Continue doxycycline but switched to IV (5) Alcohol abuse: Code(s): F10.10 - Alcohol abuse, uncomplicated Status: Acute Assessment and Plan: Patient was counseled and encouraged to quit alcohol and explained that unless patient completely abstains from alcohol his hypertriglyceridemia will not be controlled and he will continue to have recurrent episodes of pancreatitis. Patient does claim today to be motivated in quitting this time. Continue folic acid and thiamine (6) Electrolyte abnormality: Code(s): E87.8 - Other disorders of electrolyte and fluid balance, not elsewhere classified Status: Acute Assessment and Plan: Magnesium replaced (7) SIRS (systemic inflammatory response syndrome): Code(s): R65.10 - Systemic inflammatory response syndrome (SIRS) of non-infectious origin without acute organ dysfunction Status: Acute Assessment and Plan: Patient has low-grade fever likely secondary to pancreatitis. His WBCs normal. Lactic acid was normal on presentation Will check cultures if spikes fever on abx (8) Fever: Code(s): R50.9 - Fever, unspecified Status: Acute Assessment and Plan: Patient earlier was having low-grade fevers but yesterday he started spiking fevers. WBCs normal Blood culture sent Empiric aztreonam started Check procalcitonin level Plan DVT prophylaxis -start Lovenox Nutrition -clear liquid diet Code Status - Full Code Incentive spirometry, up in chair Transfer out of ICU Subjective Date/time seen: 11/12/21 14:03 abd pain improving tolerating cld Exam Narrative: General: Pt is alert awake and in NAD Lungs/Chest: Trachea central Clear BS B/L, No crackles or wheezing. Cardiac: RRR. Normal S1 S2. No murmurs Circulation: Pedal pulses are intact and symmetrical. Abdomen: Normal bowel sounds.. Soft. tender to palpation in epigastrium and left upper quadrant. Voluntary guarding. No rigidity Extremities: No clubbing, cyanosis or edema. Warm : Madison in place Neurologic: Follows commands. Moves all 4 extremities PERRL AO x3 Skin: No Rash Objective Data Vital Signs Vital Signs: Vital Signs - 24 hr 11/11/21 16:00 11/11/21 16:00 11/11/21 18:00 Temperature 98.6 F Pulse Rate 80 96 Respiratory Rate Blood Pressure Pulse Oximetry Oxygen Delivery 11/11/21 20:00 11/11/21 20:00 11/11/21 20:00 Temperature 98.5 F Pulse Rate 98 93 Respiratory Rate 14 Blood Pressure 140/86 Pulse Oximetry 94 Oxygen Delivery Room Air 11/11/21 22:00 11/12/21 00:00 11/12/21 04:32 Temperature 99.3 F Pulse Rate 76 85 93 Respiratory Rate 14 Blood Pressure 117/82 Pulse Oximetry 93 Oxygen Delivery 11/12/21 04:00 11/12/21 08:00 11/12/21 08:00 Temperature 98.1 F Pulse Rate 77 87 Respiratory Rate 15 Blood Pressure 123/84 Pulse Oximetry 95 98 Oxygen Deliver
--- NOTE | 2021-11-12 15:06 | PC.NURSE ---
This patient, Gianni Lang, was received from ICU on 11/12/21 at 1506. Patient/family oriented to unit policies and routines
[2021-11-12 15:20] VITALS: BP 129/80; PULSE 81; RESP 14; TEMP 36.4; O2SAT 98
[2021-11-12 22:01] VITALS: BP 131/90; PULSE 80; RESP 18; TEMP 36.2; O2SAT 97
[2021-11-13] MEDS: AZTREONAM 2 GM in SODIUM CHLORIDE 0.9% IV 100 ML 200 ML IVPB ×3 (03:37→20:37)
[2021-11-13] MEDS: HYDROmorphone HCL INJ (*CRX) 1 MG/ML SYR 0.5 MG IV PUSH ×3 (03:39→12:32)
[2021-11-13] MEDS: DOXYCYCLINE 100 MG/NS 100 ML 100 MG/100 ML BAG IVPB ×2 (05:03→17:22)
[2021-11-13 06:04] VITALS: BP 122/72; PULSE 82; RESP 18; TEMP 36.2; O2SAT 96
[2021-11-13 06:10] LABS: Basophils Percent Auto 0.7 % (0.2-1.2); Eosinophils Absolute Auto 0.1 K/mm3 (0-0.3); Eosinophils Percent Auto 1.4 % (0-4.4); Hemoglobin 10.7 g/dL (14.0-18.0); Immature Granulocyte Absolute 0.16 K/mm3 (0.00-0.031); Immature Granulocyte Percent A 2.8 % (0-0.5); Lymphocytes Absolute Auto 1.05 K/mm3 (0.9-3.2); Lymphocytes Percent Auto 18.6 % (18.3-44.2); Mean Corpuscular HGB Conc 32.4 g/dl (32-36); Mean Corpuscular Volume 98.8 fl (80-100); Mean Platelet Volume 11.1 fl (7.4-10.4); Monocytes Absolute Auto 0.8 K/mm3 (0.1-0.6); Neutrophils Absolute Auto 3.5 K/mm3 (1.3-6.7); Neutrophils Percent Auto 62.5 % (45.5-73.1); Platelet Count Result 142 k/mm3 (150-375); Red Blood Count 3.34 M/mm3 (4.6-6.20); White Blood Count 5.7 K/mm3 (4.5-10.0)
[2021-11-13 06:43] LABS: Alanine Aminotransferase 67 U/L (6-50); Albumin Level 3.2 g/dL (3.5-5.1); Alkaline Phosphatase 78 U/L (38-126); Anion Gap 7 mmol/L (8-16); Aspartate Amino Transferase 46 U/L (17-59); Bilirubin,Total 1.3 mg/dL (0.2-1.3); Blood Urea Nitrogen 9 mg/dL (9-20); Calcium 10.3 mg/dL (8.4-10.2); Carbon Dioxide 31 mmol/L (22-30); Chloride 100 mmol/L (98-107); Estimated CRCL calculation 120 ml/min; Estimated Glomerular Filt Rate > 60; Glucose 97 mg/dL (65-110); Lipase 104 U/L (23-300); Magnesium 2.1 mg/dL (1.6-2.3); Potassium 4.2 mmol/L (3.4-5.0); Sodium 138 mmol/L (137-145); Triglycerides 379 mg/dL (<150)
[2021-11-13] MEDS: LIPASE/AMYLASE/PROTEASE 12,000 UNITS CAP 2 CAP PO ×3 (08:25→17:22)
[2021-11-13] MEDS: FOLIC ACID 1 MG/0.2 ML INJ IV PUSH (08:26)
[2021-11-13] MEDS: ENOXAPARIN 40 MG/0.4 ML SYRINGE SUB-Q (08:26)
[2021-11-13] MEDS: THIAMINE HCL 200 MG/2 ML VIAL 100 MG IV PUSH (08:26)
--- NOTE | 2021-11-13 10:23 | WPDGIPROGNO ---
Progress Note: A&P Assessment and Plan (1) Acute pancreatitis: Code(s): K85.90 - Acute pancreatitis without necrosis or infection, unspecified Status: Acute Assessment and Plan: This is his 2nd episode of pancreatitis. Most likely his is due to alcohol and triglycerides. His CT scan shows: Acute interstitial pancreatitis of the pancreatic tail with adjacent localized small bowel ileus. 2.4 cm pancreatic head and 4.3 cm right paracolic gutter rim enhancing fluid collections, likely represent pseudocysts from prior episode of pancreatitis. Hepatomegaly and steatosis. Possible cystitis. he understands that he cannot drink alcohol for an extended period of time and in fact I told him that it would be a series mistake to restart any alcohol. I explained that months a person has had pancreatitis, it does not seem to take much for it to come back an EGD episode can be worse. I reminded him that pancreatitis can be fatal. He understands that he cannot be fed until he is in much less pain. Lipase is 584 on this admission. One week ago it was 61, barely elevated pre 11/10/2021 lipase is down to 367. His pain has decreased somewhat. I think we can go ahead and start him on a clear liquid diet. 11/11/2021 he is feeling better each day. Tolerating clear liquids. I will advance him to full liquids with pancreatic enzyme supplements. 11/13/2021 he was tolerating full liquids fairly well but this morning had some nausea after half of his meal and some coffee. Still requiring pain medication intravenous. He states that last for about 2 hours. Pain is down to a for now. CT scan unfortunately shows evolution, progression of pancreatitis: 1. Acute pancreatitis with interval worsening of inflammation and worsened small volume of pelvic ascites. 2. New small pleural effusions. 3. Diffuse hepatic steatosis. as well as retroperitoneal extension of fat stranding. This explains his back pain. I agree that we can advance his diet to low fat. We will need to see how he does with that. I would like to keep him at least until he is off all pain meds and tolerating diet. I told that he could probably be discharged tomorrow but it depends on how he does today with his diet. (2) Hypertriglyceridemia: Code(s): E78.1 - Pure hyperglyceridemia Status: Acute Assessment and Plan: His triglyceride levels are office chart, greater than 2625. He had the same reading when he was here in March. In other words the medication has had no affect on his triglyceride levels. Drinking alcohol especially beer contributes to that to some extent . he has been started on insulin drip in order to help lower the triglyceride levels. 11/10/2021 triglyceride level has come down to 1200. 11/11/2021 his triglycerides are down to 348. 11/13/21 triglycerides have come down nicely. 379 today Hopefully they will stay down. (3) Alcohol abuse: Code(s): F10.10 - Alcohol abuse, uncomplicated Status: Acute Assessment and Plan: we discussed a removal of alcohol an acute pancreatitis and he admits that he was told this in March. We will need to continue to nutrition counselor him to stay away from alcohol 11/10/2021. We had another discussion about alcohol abuse. He seems committed to stopping it completely, verbalizing his concerns about damage to the liver and pancreas. No evidence of alcohol withdrawal syndrome in terms of confusion. 11/11/2021 he again confirmed his commitment to stay away from alcohol. 11/13/2021 we again discussed the need for him to stay off alcohol. I think he is committed to doing so (4) Lyme disease: Code(s): A69.20 - Lyme disease, unspecified Status: Acute Assessment and Plan: this is a new diagnosis for which he just 2 days ago was started on dicyclomine. He believes that he may have had a tick bite (5) Elevated liver enzymes: Code(s): R74.8 - Abnormal levels of
--- NOTE | 2021-11-13 14:36 | PM.DS ---
DS: Admitting Diagnosis Discharge Date 11/13/21 Admitting Diagnosis pancreatitis DS: Discharge Diagnosis Discharge Diagnosis (1) Hypertriglyceridemia: Code(s): E78.1 - Pure hyperglyceridemia Status: Acute Assessment and Plan: Patient was treated with insulin infusion and D5 LR His triglyceride levels have improved and I have discontinued insulin infusion Patient has chronic hypertriglyceridemia and is on Vascepa which will be resumed May have to add fibrate (2) Acute pancreatitis: Code(s): K85.90 - Acute pancreatitis without necrosis or infection, unspecified Status: Acute Assessment and Plan: Acute recurrent pancreatitis secondary to hypertriglyceridemia and alcohol abuse lipase improved tolerating cld no changes today montior labs (3) Essential (primary) hypertension: Code(s): I10 - Essential (primary) hypertension Status: Acute Assessment and Plan: Blood pressure in controlled range. Hold amlodipine. Currently NPO Treat as needed (4) Lyme disease: Code(s): A69.20 - Lyme disease, unspecified Status: Acute Assessment and Plan: Continue doxycycline but switched to IV (5) Alcohol abuse: Code(s): F10.10 - Alcohol abuse, uncomplicated Status: Acute Assessment and Plan: Patient was counseled and encouraged to quit alcohol and explained that unless patient completely abstains from alcohol his hypertriglyceridemia will not be controlled and he will continue to have recurrent episodes of pancreatitis. Patient does claim today to be motivated in quitting this time. Continue folic acid and thiamine (6) Electrolyte abnormality: Code(s): E87.8 - Other disorders of electrolyte and fluid balance, not elsewhere classified Status: Acute Assessment and Plan: Magnesium replaced (7) SIRS (systemic inflammatory response syndrome): Code(s): R65.10 - Systemic inflammatory response syndrome (SIRS) of non-infectious origin without acute organ dysfunction Status: Acute Assessment and Plan: Patient has low-grade fever likely secondary to pancreatitis. His WBCs normal. Lactic acid was normal on presentation Will check cultures if spikes fever on abx (8) Fever: Code(s): R50.9 - Fever, unspecified Status: Acute Assessment and Plan: Patient earlier was having low-grade fevers but yesterday he started spiking fevers. WBCs normal Blood culture sent Empiric aztreonam started Check procalcitonin level Plan DVT prophylaxis -start Lovenox Nutrition -clear liquid diet Code Status - Full Code Incentive spirometry, up in chair Transfer out of ICU DS: Summary Hospital Course Hospital Course: Patient admitted for pancreatitis 2/2 elevated TG and etoh. treated in ICU and treated conservatively. ON antilipid medication and also being treated for Lyme ds. Otherwise patient is now eating a diet and labs look good, he can be dc to fu w pcp and gi Time Spent with Patient Time attestation: Total time spent providing and/or coordinating discharge services: Exam Narrative: General: Pt is alert awake and in NAD Lungs/Chest: Trachea central Clear BS B/L, No crackles or wheezing. Cardiac: RRR. Normal S1 S2. No murmurs Circulation: Pedal pulses are intact and symmetrical. Abdomen: Normal bowel sounds.. Soft. tender to palpation in epigastrium and left upper quadrant. Voluntary guarding. No rigidity Extremities: No clubbing, cyanosis or edema. Warm : Madison in place Neurologic: Follows commands. Moves all 4 extremities PERRL AO x3 Skin: No Rash DS: Data Data Completed and Pending Labs on day of discharge: Labs from last 24 hours 11/13/21 11/13/21 05:44 05:44 WBC 5.7 RBC 3.34 L Hgb 10.7 L Hct 33.0 L MCV 98.8 MCH 32.0 MCHC 32.4 RDW 12.0 Plt Count 142 L MPV 11.1 H Immature Gran % (Auto) 2.8 H Neut % (Auto) 62.5 Lymph % (Auto) 18.6 [place] % (Auto) 14
[2021-11-13 14:38] VITALS: BP 121/69; PULSE 73; RESP 16; TEMP 36.1; O2SAT 97
--- NOTE | 2021-11-13 15:04 | PC.NURSE ---
Spoke to Dr. Mejia to clarify if he wanted patient to discharge, as Dr. Ang placed discharge order. Dr. Mejia would like for patient to stay another day to make sure he can manage pain without IV pain medications and to tolerate a diet.
[2021-11-13] MEDS: HYDROcodone/acetaminophen (*CRX) 10-325 MG TABLET 1 TAB PO ×2 (16:16→22:42)
[2021-11-13 19:15] VITALS: BP 121/75; PULSE 65; RESP 17; TEMP 36.6; O2SAT 98
[2021-11-14 03:03] VITALS: BP 110/61; PULSE 60; RESP 18; TEMP 36.4; O2SAT 98
[2021-11-14] MEDS: AZTREONAM 2 GM in SODIUM CHLORIDE 0.9% IV 100 ML 200 ML IVPB (04:56)
[2021-11-14 05:32] LABS: Hematocrit 33.6 % (42.0-52.0); Hemoglobin 10.7 g/dL (14.0-18.0); Mean Corpuscular HGB Conc 31.8 g/dl (32-36); Mean Corpuscular Hemoglobin 32.2 pg (26-34); Mean Corpuscular Volume 101.2 fl (80-100); Mean Platelet Volume 10.9 fl (7.4-10.4); Platelet Count Result 175 k/mm3 (150-375); Red Blood Count 3.32 M/mm3 (4.6-6.20); Red Cell Distribution Width 11.8 % (11.5-14.5); White Blood Count 6.5 K/mm3 (4.5-10.0)
[2021-11-14] MEDS: DOXYCYCLINE 100 MG/NS 100 ML 100 MG/100 ML BAG IVPB (05:36)
[2021-11-14 05:48] LABS: Alanine Aminotransferase 66 U/L (6-50); Albumin Level 3.4 g/dL (3.5-5.1); Alkaline Phosphatase 77 U/L (38-126); Anion Gap 7 mmol/L (8-16); Aspartate Amino Transferase 47 U/L (17-59); Bilirubin,Total 0.6 mg/dL (0.2-1.3); Blood Urea Nitrogen 10 mg/dL (9-20); Calcium 10.5 mg/dL (8.4-10.2); Carbon Dioxide 29 mmol/L (22-30); Chloride 102 mmol/L (98-107); Estimated CRCL calculation 119 ml/min; Estimated Glomerular Filt Rate > 60; Glucose 95 mg/dL (65-110); Lipase 105 U/L (23-300); Magnesium 2.1 mg/dL (1.6-2.3); Potassium 4.1 mmol/L (3.4-5.0); Sodium 138 mmol/L (137-145); Triglycerides 333 mg/dL (<150)
--- NOTE | 2021-11-14 06:49 | WPDGIPROGNO ---
Progress Note: A&P Assessment and Plan (1) Acute pancreatitis: Code(s): K85.90 - Acute pancreatitis without necrosis or infection, unspecified Status: Acute Assessment and Plan: ?This is his 2nd episode of pancreatitis.? Most likely his is due to alcohol and triglycerides.? His CT scan shows: Acute interstitial pancreatitis of the pancreatic tail with adjacent localized small bowel ileus. 2.4 cm pancreatic head and 4.3 cm right paracolic gutter rim enhancing fluid collections, likely represent pseudocysts from prior episode of pancreatitis. Hepatomegaly and steatosis. Possible cystitis. ?he understands that he cannot drink alcohol for an extended period of time and? in fact I told him that it would be a series mistake to restart any alcohol.? I explained that months a person has had pancreatitis, it does not seem to take much for it to come back an EGD episode can be worse.? I reminded him that pancreatitis can be fatal. ? He understands that he cannot be fed until he is in much less pain. ? Lipase is 584 on this admission.? One week ago? it was 61, barely elevated pre ?11/10/2021? lipase is down to 367.? His pain has decreased somewhat.? I think we can go ahead and start him on a clear liquid diet. ?11/11/2021 he is feeling better each day.? Tolerating clear liquids.? I will advance him to full liquids with pancreatic enzyme supplements. 11/13/2021? he was tolerating full liquids fairly well but this morning had some nausea after half of his meal and some coffee. ? Still requiring pain medication intravenous.? He states that last for about 2 hours.? Pain is down to a for now. ? CT scan unfortunately shows evolution, progression of pancreatitis: 1. Acute pancreatitis with interval worsening of inflammation and worsened small volume of pelvic ascites. 2. New small pleural effusions. 3. Diffuse hepatic steatosis. ?as well as retroperitoneal extension of fat stranding.? This explains his back pain. ?I agree that we can advance his diet to low fat.? We will need to see how he does with that.? I would like to keep him at least until he is off all pain meds and tolerating diet.? I told that he could probably be discharged tomorrow but it depends on how he does today with his diet. 11/14/2021He states that he did well last night. He had 1 hydrocodone pill in the evening. I told that I would like to see him in the office in 4 weeks. Will repeat a CT scan at around that time to ensure that his pancreatitis and in particular pseudocyst is improving. We discussed the low-fat diet particularly, in his case, the need not so much to avoid cholesterol but to avoid triglyceride raising food such as carbohydrates, beer I reminded him that until I see him in the office for follow-up he will need to stay on Creon, 2 capsules with each meal. (2) Hypertriglyceridemia: Code(s): E78.1 - Pure hyperglyceridemia Status: Acute Assessment and Plan: triglycerides today are unchanged. He showed me his records of how his triglycerides had been in the 170s 4 years ago then went up to over 600 last year. He admits that he was not eating properly. He has lost weight in the last year but unfortunate triglycerides raised significantly. Currently it is 323. I impressed upon him the need to watch his diet. He will follow up with his primary care physician in the next couple weeks. (3) Alcohol abuse: Code(s): F10.10 - Alcohol abuse, uncomplicated Status: Acute Assessment and Plan: we discussed a removal of alcohol an acute pancreatitis and he admits that he was told this in March.? We will need to continue to assistant counsel him to stay away from alcohol ? 11/10/2021.? We had another discussion about alcohol abuse.? He seems committed to stopping it completely, verbalizing his concerns about damage to the liver and pancreas. ? No evidence of alcohol withdrawal syndrome in terms of confusion. ? 11/11/2021? he again confirmed his commitment to stay aw
[2021-11-14 08:00] VITALS: BP 113/74; PULSE 83; RESP 18; TEMP 36.4; O2SAT 97
[2021-11-14] MEDS: THIAMINE HCL 200 MG/2 ML VIAL 100 MG IV PUSH (09:00)
[2021-11-14] MEDS: ENOXAPARIN 40 MG/0.4 ML SYRINGE SUB-Q (09:00)
[2021-11-14] MEDS: LIPASE/AMYLASE/PROTEASE 12,000 UNITS CAP 2 CAP PO ×2 (09:00→12:41)
[2021-11-14] MEDS: FOLIC ACID 1 MG/0.2 ML INJ IV PUSH (09:01)
--- NOTE | 2021-11-14 10:52 | PM.DS ---
DS: Admitting Diagnosis Discharge Date November 14, 2021 Admitting Diagnosis pancreatitis DS: Discharge Diagnosis Discharge Diagnosis (1) Hypertriglyceridemia: Code(s): E78.1 - Pure hyperglyceridemia Status: Acute (2) Acute pancreatitis: Code(s): K85.90 - Acute pancreatitis without necrosis or infection, unspecified Status: Acute (3) Essential (primary) hypertension: Code(s): I10 - Essential (primary) hypertension Status: Acute (4) Lyme disease: Code(s): A69.20 - Lyme disease, unspecified Status: Acute (5) Alcohol abuse: Code(s): F10.10 - Alcohol abuse, uncomplicated Status: Acute (6) Electrolyte abnormality: Code(s): E87.8 - Other disorders of electrolyte and fluid balance, not elsewhere classified Status: Acute (7) SIRS (systemic inflammatory response syndrome): Code(s): R65.10 - Systemic inflammatory response syndrome (SIRS) of non-infectious origin without acute organ dysfunction Status: Acute (8) Fever: Code(s): R50.9 - Fever, unspecified Status: Acute DS: Summary Hospital Course Hospital Course: Patient admitted for pancreatitis 2/2 elevated TG and etoh. treated in ICU and treated conservatively. ON antilipid medication and also being treated for Lyme ds. Otherwise patient is now eating a diet and labs look good, he can be dc to w pcp and gi Time Spent with Patient Time attestation: Total time spent providing and/or coordinating discharge services: Exam Narrative: General: alert and oriented Psych: appropriate mood nad affect Eyes: PERRLA Neck: Trachea midline, no new lesions Skin: no changes Lungs: CTA Cardiac: Normal S1,S2, no MGR ABD: soft, nd, nt, nbs Ext: no new lesions, no cce Vasc: Pulses intact DS: Data Data Completed and Pending Labs on day of discharge: Labs from last 24 hours 11/14/21 11/14/21 05:05 05:05 WBC 6.5 RBC 3.32 L Hgb 10.7 L Hct 33.6 L MCV 101.2 H MCH 32.2 MCHC 31.8 L RDW 11.8 Plt Count 175 MPV 10.9 H Sodium 138 Potassium 4.1 Chloride 102 Carbon Dioxide 29 Anion Gap 7 L BUN 10 Creatinine 0.70 Estim Creat Clear Calc 119 Estimated GFR > 60 Glucose 95 Calcium 10.5 H Magnesium 2.1 Total Bilirubin 0.6 AST 47 ALT 66 H Alkaline Phosphatase 77 Total Protein 7.0 Albumin 3.4 L Triglycerides 333 H Lipase 105 Preliminary micro results at discharge 11/10/21 16:26 Blood Culture - Preliminary Blood 11/10/21 16:26 Blood Culture - Preliminary Blood Discharge Plan Discharge Attending physician on discharge: George Ang Consulting providers: Tk Courtney ; Indra Mejia Discharging Clinician: George Ang Patient Disposition: Home, Self-Care Activity: no preference Diet: as tolerated Patient Instructions: Antibiotic Form, Pancreatitis (DC), Abuse of Alcohol (DC) Stand Alone Forms: General Discharge Information Follow-up/Referrals: Indra Mejia MD [Physician] - Lulu Marrero PA-C [Primary Care Provider] - Discharge Medications: New Creon 12,000-38,000 -60,000 unit Capsule,Delayed Release(Dr/Ec) 2 cap PO TIDWM 30 Days Qty: 180 0RF hydrocodone-acetaminophen 5-325 mg tablet 1 tablet PO Q4H PRN (Reason: pain) 5 Days Qty: 20 0RF Continued ondansetron 4 mg tablet,disintegrating 4 mg PO Q6H PRN (Reason: Nausea And Vomiting) amlodipine 10 mg tablet 10 mg PO DAILY Qty: 90 1RF icosapent ethyl [Vascepa] 1 gram capsule 2 g PO BID Qty: 120 5RF doxycycline hyclate 100 mg capsule 100 mg PO BID 14 Days Qty: 28 0RF Rx Instructions: x14 days, Rx filled 11/07 Date of admission: 11/09/21 02:32 Primary Care Provider: Lulu Marrero Admitting Provider: Daljit Ramirez V. Attending physician on admission: Daljit Ramirez V. Condition: Guarded Prognosis
== END 2021-11-14 13:05 | disposition home or self-care (01) | DRG 439 ==
LOC: ANHED 21:54 → ANHICU 11-09 03:01 → ANH2MED 11-12 15:03
PROVIDERS: Internal Medicine; Internal Medicine Gastroenterology; Admitting Provider Internal Medicine; Emergency Provider General Practice; PCP Physician Assistant; Visit Provider Chiropractor
DX: K85.20 Alcohol induced acute pancreatitis without necrosis or infection (principal); A69.20 Lyme disease, unspecified; R65.10 Systemic inflammatory response syndrome (SIRS) of non-infectious origin without acute organ dysfunction; F10.10 Alcohol abuse, uncomplicated; E78.1 Pure hyperglyceridemia; I10 Essential (primary) hypertension; E78.5 Hyperlipidemia, unspecified; R74.8 Abnormal levels of other serum enzymes; E87.8 Other disorders of electrolyte and fluid balance, not elsewhere classified; Z20.822 Contact with and (suspected) exposure to COVID-19; Z23 Encounter for immunization; Z79.899 Other long term (current) drug therapy; Z87.891 Personal history of nicotine dependence; Z88.0 Allergy status to penicillin
CPT/HCPCS: 36415; 74176; 74177; 80053; 80061; 80307; 81001; 82948; 83605; 83690; 83735; 84100; 84145; 84478; 85025; 85027; 85055; 85610; 85730; 87040; 90471; 90686; 93005; 96361; 96365; 96375; 99285; A9270; C9803; G0008; J0610; J1170; J1650; J1815; J2270; J2405; J3411; J3480; J7030; J7050; J7120; J7121; Q9967; U0003; U0005

== ENCOUNTER 2021-12-08 09:33 | Outpatient (CLI) | payer BC, SELFPAY ==
--- NOTE | ~2021-12-08 | CT_ITS ---
EXAMINATION: CT abdomen pelvis w con INDICATION: Pancreatitis TECHNIQUE: Computed tomographic images of the abdomen and pelvis were obtained after the administrati on of 100 cc of Omnipaque 350 intravenous contrast. The dose-length product (DLP) was 262.62 mGy-cm. Automated exposure control and iterative reconstruction technique were employed. COMPARISON: 11/11/2021 FINDINGS: The lung bases are clear. The heart size is normal. Previously described pleural effusions have resolved. The liver, gallbladder, and adrenal glands are normal. The kidneys are unremarkable. P unctate calcifications in an otherwise normal spleen likely represent healed granulomatous disease. T here is persistent but improved edema of the pancreas and decrease in acute peripancreatic fluid edilma ection. Pelvic ascites has resolved. There is a stable 2.5 x 1.8 cm fluid collection in the right per icolic gutter, likely pseudocyst or fat necrosis from prior pancreatitis. No pathologically enlarged abdominal or pelvic lymph nodes are identified. There is no free intraperitoneal gas or evidence of b owel obstruction. The appendix is normal. IMPRESSION: 1. Continued improvement in interstitial edematous pancreatitis and decreased acute peripancreatic fl uid collection. 2. Resolved pleural effusions and pelvic ascites. Reviewed, dictated and finalized at location B. IMPRESSION: 1. Continued improvement in interstitial edematous pancreatitis and decreased a cute peripancreatic fluid collection. 2. Resolved pleural effusions and pelvic ascites.
== END 2021-12-08 09:34 | disposition home or self-care (01) ==
PROVIDERS: PCP Physician Assistant; Visit Provider Internal Medicine Gastroenterology
DX: K85.90 Acute pancreatitis without necrosis or infection, unspecified (principal)
CPT/HCPCS: 74177; Q9967

== ENCOUNTER → 2022-02-24 15:31 | Outpatient (CLI) | payer BC, SELFPAY ==
--- NOTE | ~2022-02-24 | XR_ITS ---
XR lumbar spine 2-3V DATE: 02/24/2022 15:52 INDICATION: Low back pain TECHNIQUE: AP, lateral, coned lateral lumbosacral views COMPARISON: None FINDINGS: There is mild levoscoliosis of the thoracolumbar spine. Normal alignment of the lumbar spin e. No fracture or bone destruction or spondylolisthesis. The pedicles are intact. Lumbar and lumbosac ral interspaces are relatively preserved. The sacral iliac joints are intact. IMPRESSION: Mild thoracolumbar levoscoliosis Reviewed, dictated and finalized at location B. EKEEPER SUPERVISOR
--- NOTE | ~2022-02-24 | XR_ITS ---
XR hip RT min 2V DATE: 02/24/2022 15:52 INDICATION: Right hip pain TECHNIQUE: AP and lateral views of right hip COMPARISON: None FINDINGS: No fracture or dislocation, avascular necrosis or bone destruction. Right hip joint space a ppears well preserved. The pubic symphysis and sacroiliac joints appear normally aligned. IMPRESSION: Negative Reviewed, dictated and finalized at location B. F DEVELOPMENT NURSE IMPRESSION: Negative
== END ==
PROVIDERS: PCP Family Medicine Adolescent Medicine; Visit Provider Physician Assistant
DX: M54.50 Low back pain, unspecified (principal); M25.551 Pain in right hip
CPT/HCPCS: 72100; 73502

== ENCOUNTER → 2022-03-29 15:06 | Outpatient (CLI) | payer BC, SELFPAY ==
--- NOTE | ~2022-03-29 | XR_ITS ---
EXAMINATION: [id number] INDICATION: Other chest pain TECHNIQUE: A frontal view of the chest and 3 views of the right ribs were obtained. COMPARISON: None. FINDINGS: The lungs are free of acute opacities. No pleural effusion or pneumothorax. The cardiomedia stinal silhouette is normal. The visualized bones and soft tissues are unremarkable. No displaced ri b fracture is identified. IMPRESSION: 1. No acute cardiopulmonary abnormality or evidence of displaced rib fracture. Reviewed, dictated and finalized at location B. O SERVICE SUPERVISOR
== END ==
PROVIDERS: PCP Family Medicine Adolescent Medicine; Visit Provider Physician Assistant
DX: R07.89 Other chest pain (principal)
CPT/HCPCS: 71101

== ENCOUNTER 2023-01-10 07:45 | Outpatient (CLI) | payer BC, SELFPAY ==
--- NOTE | ~2023-01-10 | US_ITS ---
US abdomen limited INDICATION: Right upper quadrant pain. History of pancreatitis. PROCEDURE: Realtime right upper abdominal ultrasound. COMPARISON: Ultrasound dated 11/08/2021 FINDINGS: The pancreas is normal without focal mass or pancreatic ductal dilation. Liver echotexture is increased, consistent with fatty infiltration. There is normal directional flow in the portal ve in. There is gallbladder sludge. No stones, gallbladder wall thickening or pericholecystic fluid. Common bile duct measures 3 mm. No sonographic Greene's sign. IMPRESSION: 1: Gallbladder sludge. Reviewed, dictated and finalized at location B. RAGE SPECIALIST RN IMPRESSION: 1: Gallbladder sludge.
== END 2023-01-10 07:46 | disposition home or self-care (01) ==
PROVIDERS: PCP Family Medicine Adolescent Medicine; Visit Provider Internal Medicine Gastroenterology
DX: R10.11 Right upper quadrant pain (principal)
CPT/HCPCS: 76705